=== PATIENT | female | born 1950 | race Caucasian/White ===

== ENCOUNTER → 2016-09-09 | Outpatient (CLI) | payer OTHER, BC | LOC: FIMAGING 11:58 | PROVIDERS: ATTEND Obstetrics & Gynecology | DX: Z13.21 Encounter for screening for nutritional disorder (principal) | CPT/HCPCS: G0202 ==

== ENCOUNTER → 2017-04-20 | Outpatient (CLI) | payer OTHER, BC | LOC: BMCIMAGING 14:26 | PROVIDERS: ATTEND Physician Assistant | DX: Z47.89 Encounter for other orthopedic aftercare (principal); M25.562 Pain in left knee; R50.9 Fever, unspecified; M25.462 Effusion, left knee; Z96.652 Presence of left artificial knee joint ==

== ENCOUNTER 2017-04-21 13:27 | Inpatient (IN) | payer OTHER, BC ==
[2017-04-21] MEDS ORDERED: LR 1,000 ML IV SCH ×2 (13:56→18:00)
[2017-04-21] MEDS ORDERED: LR 1,000 ML IV ONE (13:58)
[2017-04-21] MEDS ORDERED: LIDOCAINE 1% 2 ML INJ ID PRN (13:58)
[2017-04-21] MEDS ORDERED: ceFAZolin 1 GM/5 ML SYR ONE ×2 (15:16→15:19)
--- NOTE | 2017-04-21 15:40 | PDANEPAE ---
ANE Past Medical History - Cardiovascular History Hx Hypertension: No Hx Arrhythmias: No Hx Chest Pain: No Hx Coronary Artery / Peripheral Vascular Disease: No Hx CHF / Valvular Disease: No Hx Palpitations: No - Pulmonary History Hx COPD: No Hx Asthma/Reactive Airway Disease: No Hx Recent Upper Respiratory Infection: No Hx Oxygen in Use at Home: No Hx Sleep Apnea: No Sleep Apnea Screening Result - Last Documented: Negative - Neurologic History Hx Cerebrovascular Accident: No Hx Seizures: No Hx Dementia: No - Endocrine History Hx Diabetes: No - Renal History Hx Renal Disorders: No - Liver History Hx Hepatic Disorders: No - Neurological & Psychiatric Hx Hx Neurological and Psychiatric Disorders: No - Cancer History Hx Cancer: No - Congenital Disorder History Hx Congenital Disorders: No - GI History Hx Gastrointestinal Disorders: No - Surgical History Prior Surgeries: Left knee. T&A ANE Review of Systems Review of Systems: - Exercise capacity METS (RN): 6 METS ANE Patient History - Allergies Allergies/Adverse Reactions: No Allergies [NKDA] Allergy (Verified 07/21/10 12:50) - Home Medications Home Medications: Amphet Asp and D/Amphet [Adderall 20 mg (*)] 10 mg PO BID 04/21/17 [Last Taken 04/19/17] Estradiol/Norethindrone Acet [Combipatch 0.05-0.14 mg Ptch] 1 each TD Q7D PRN [Last Taken 04/14/17] Ibuprofen [Motrin (*)] 800 mg PO Q6HRS PRN 04/21/17 [Last Taken 04/21/17 07:00] Multivitamins [Multivitamin (*)] 1 each PO DAILY 04/21/17 [Last Taken Unknown] oxyCODONE/APAP 5/325 [Percocet 5/325 (*)] 2 - 3 tab PO Q4-6PRN PRN 04/21/17 [ Last Taken 04/21/17 11:00 3 tabs] - NPO status NPO Since - Liquids (Date): 04/21/17 NPO Since - Liquids (Time): 10:00 NPO Since - Solids (Date): 04/20/17 NPO Since - Solids (Time): 22:00 - Smoking Hx Smoking Status: Current some day smoker ANE Labs/Vital Signs - Vital Signs Blood Pressure: 116/64 Heart Rate: 66 Respiratory Rate: 16 O2 Sat (%): 93 Height: 160.02 cm Weight: 61.235 kg ANE Physical Exam - Airway Neck exam: FROM Mallampati Score: Class 2 Mouth exam: normal dental/mouth exam - Pulmonary Pulmonary: no respiratory distress - Cardiovascular Cardiovascular: regular rate and rhythym - ASA Status ASA Status: II ANE Anesthesia Plan Anesthesia Plan: GA w LMA
[2017-04-21] MEDS ORDERED: MIDAZOLAM 2 MG/2 ML VIAL ONE (15:41)
[2017-04-21] MEDS ORDERED: PROPOFOL 200 MG/20 ML VIAL ONE (15:41)
[2017-04-21] MEDS ORDERED: fentaNYL 100 MCG/2 ML INJ ONE ×5 (15:41→18:00)
[2017-04-21] MEDS ORDERED: LIDOCAINE 2% 100 MG/5 ML SYR ONE (15:42)
[2017-04-21] MEDS ORDERED: ONDANSETRON 4 MG/2 ML VIAL ONE (15:42)
[2017-04-21] MEDS ORDERED: VANCOMYCIN 1 GM VIAL ONE (16:21)
[2017-04-21] MEDS ORDERED: VANCOMYCIN HCL/NORMAL SALINE 250 ML IV ONE (16:30)
[2017-04-21] MEDS ORDERED: BUPIVACAINE 0.5% 30 ML SDV ONE (17:17)
[2017-04-21] MEDS ORDERED: ONDANSETRON 4 MG/2 ML VIAL IVP PRN ×2 (17:40→17:54)
[2017-04-21] MEDS ORDERED: ONDANSETRON DISINTEGRATING 4 MG TAB PO PRN (17:40)
[2017-04-21] MEDS ORDERED: traMADol 50 MG TAB PO PRN (17:40)
[2017-04-21] MEDS ORDERED: DIAZEPAM 5 MG TAB PO PRN (17:40)
[2017-04-21] MEDS ORDERED: diphenhydrAMINE 25 MG CAP PO PRN (17:40)
[2017-04-21] MEDS ORDERED: BISACODYL 10 MG SUPP PR PRN (17:40)
[2017-04-21] MEDS ORDERED: MAGNESIUM HYDROXIDE 30 ML UDCUP PO PRN (17:40)
[2017-04-21] MEDS ORDERED: DIPHENOXYLATE/ATROPINE LOMOTIL 1 TAB PO PRN (17:40)
[2017-04-21] MEDS ORDERED: PROMETHAZINE HCL 25 MG SUPPR PR PRN (17:40)
[2017-04-21] MEDS ORDERED: METOCLOPRAMIDE 10 MG/2 ML VIAL IVP PRN (17:40)
[2017-04-21] MEDS ORDERED: TEMAZEPAM 15 MG CAP PO PRN (17:40)
[2017-04-21] MEDS ORDERED: POLYETHYLENE GLYCOL 3350 17 GM PKT PO PRN (17:40)
[2017-04-21] MEDS ORDERED: LACTULOSE 20 GM/30 ML UDCUP PO PRN (17:40)
[2017-04-21] MEDS ORDERED: PROMETHAZINE HCL 25 MG/ML INJ IVP PRN (17:40)
[2017-04-21] MEDS ORDERED: ESTRADIOL TD PRN (17:44)
[2017-04-21] MEDS ORDERED: NORETHINDRONE ACET TD PRN (17:44)
[2017-04-21] MEDS ORDERED: OXYCODONE/APAP 5/325 TAB PO PRN (17:54)
[2017-04-21] MEDS ORDERED: HYDROCODONE/APAP 5/325 TAB PO PRN (17:54)
[2017-04-21] MEDS ORDERED: NALOXONE HCL 0.4 MG/ML INJ IVP PRN (17:54)
[2017-04-21] MEDS ORDERED: MEPERIDINE 25 MG/ML SYR IVP PRN (17:54)
[2017-04-21] MEDS ORDERED: ALBUTEROL 3 ML DEYVIAL IH PRN (17:54)
--- NOTE | 2017-04-21 17:57 | POSTANESTH ---
Post Anesthetic Evaluation Cardiovascular Status: Similar to Pre-Op Cond Respiratory Status: Similar to Pre-op Cond. Level of Consciousness/Mental Status: Alert and Oriented Pain Control: Adequate, Prn Tx Ordered Nausea/Vomiting Control: Adequate, Prn Tx Ordered Complications Possibly Related to Anesthesia: None Noted
[2017-04-21] MEDS: fentaNYL 100 MCG/2 ML INJ IVP PRN ×2 (18:03→18:08)
[2017-04-21] MEDS ORDERED: MEPERIDINE 25 MG/ML SYR ONE (18:19)
[2017-04-21] MEDS ORDERED: oxyCODONE IR 5 MG TAB ONE (19:00)
[2017-04-21] MEDS: oxyCODONE IR 5 MG TAB PO PRN ×2 (19:01→21:46)
[2017-04-21] MEDS: ACETAMINOPHEN 325 MG TAB PO SCH (20:02)
[2017-04-21] MEDS: FAMOTIDINE 20 MG TAB PO SCH (20:02)
[2017-04-21] MEDS: SENNOSIDES/DOCUSATE SODIUM TAB PO SCH (20:03)
[2017-04-21] MEDS: DIAZEPAM 5 MG TAB PO PRN ×2 (20:03→21:47)
[2017-04-21] MEDS: ADDERALL 10 MG TAB PO SCH (20:06)
[2017-04-21] MEDS: KETOROLAC 15 MG/1 ML SDV IVP PRN (21:47)
[2017-04-22] MEDS: oxyCODONE IR 5 MG TAB PO PRN ×3 (02:38→21:08)
[2017-04-22] MEDS: ACETAMINOPHEN 325 MG TAB PO SCH ×5 (02:39→17:31)
[2017-04-22] MEDS: KETOROLAC 15 MG/1 ML SDV IVP PRN ×2 (04:21→17:31)
[2017-04-22] MEDS: DIAZEPAM 5 MG TAB PO PRN ×3 (04:21→17:54)
--- NOTE | 2017-04-22 08:45 | SOAPPROG ---
SOAP Progress Note Assessment/Plan: Assessment: s/p hardware removal of failed partial knee septic knee Plan:ID consult iv abx picc line pain control dvt precautions d/c tomorow if stable 04/22/17 08:43 Subjective: pain slightly better limited mobility no cp or sob Objective: Vital Signs Temp Pulse Resp BP Pulse Ox 36.7 C 70 16 121/60 H 100 04/22/17 07:43 04/22/17 07:43 04/22/17 07:43 04/22/17 07:43 04/22/17 07:43 Microbiology 04/21/17 16:26 Gram Stain - Final Knee - Tissue 04/21/17 16:30 Gram Stain - Final Knee - Eswab 04/21/17 16:30 Mycobacterial Smear (CAROL) - Final Knee - Eswab Mycobacterial Culture - Final Laboratory Results 04/22/17 04:17 04/21/17 04/22/17 04/23/17 05:59 05:59 05:59 Intake Total 2000 Output Total 700 Balance 1300 dressing intact intact pf,df,ehl toes warm and pink neg homans bilaterally ICD10 Worksheet Patient Problems: Problems Problem Status Onset Septic arthritis of knee, left Acute - ICD10 Problem Qualifiers (1) Septic arthritis of knee, left
[2017-04-22] MEDS: SENNOSIDES/DOCUSATE SODIUM TAB PO SCH ×2 (09:02→21:07)
[2017-04-22] MEDS: ADDERALL 10 MG TAB PO SCH ×2 (09:02→21:34)
[2017-04-22] MEDS: FAMOTIDINE 20 MG TAB PO SCH ×2 (09:02→21:08)
[2017-04-22] MEDS: cefTRIAXone 2 GM in STERILE WATER INJ 20 ML IV SCH (09:03)
[2017-04-22] MEDS: ENOXAPARIN 30 MG/0.3 ML SYR SC SCH ×2 (09:03→21:08)
[2017-04-22] MEDS: MULTIVITAMINS 1 EACH TAB PO SCH (09:03)
[2017-04-22] MEDS ORDERED: ALTEPLASE 2 MG VIAL IVP PRN (09:58)
--- NOTE | 2017-04-22 15:14 | GCON ---
[f rep st] CONSULTATION INPATIENT INFECTIOUS DISEASE CONSULTATION DATE OF CONSULTATION: 04/22/2017 REFERRING PHYSICIAN: Neftaly Mccormick MD REASON FOR CONSULTATION: Left knee prosthetic joint infection. HISTORY OF PRESENT ILLNESS: The patient is a 67-year-old female who had a knee arthroplasty placed [facility] years ago. The patient has not had any problems with the arthroplasty, but developed a right -sided dental abscess approximately 2-3 weeks ago. The patient has not had a tooth extraction, altho ugh this was recommended by a band tacker. She was not placed on any antibiotics. She awoke approx imately 3 days ago, after a hike with her dog, and discovered that her left knee was swollen and pain ful. This led to aspiration in the orthopedist's office which revealed a purulent fluid. Cultures a re not revealing at this point. The patient was admitted and washed out yesterday in the operating r oom. Purulent fluid was again discovered. Multiple samples were sent. She was covered perioperativ les with cefazolin. We started her on ceftriaxone this morning. She is awake and alert, although in some significant discomfort. No other complaints. No fevers or chills. PAST MEDICAL HISTORY: 1. Insomnia. 2. Some chronic pain. PAST SURGICAL HISTORY: Total knee replacement. ANTIBIOTICS: Ceftriaxone. ALLERGIES: No known medical allergies. SOCIAL HISTORY: Patient is independent and active. She denies any significant tobacco, alcohol or d rug use. FAMILY HISTORY: Reviewed, but noncontributory. REVIEW OF SYSTEMS: Other than that detailed above in the History of Present Illness, a comprehensive 10-system review is negative. PHYSICAL EXAMINATION: VITAL SIGNS: Temperature maximum is 36.9, temperature current is 36.8, heart rate is 77, respiratory rate is 16, blood pressure is 136/69. GENERAL: The patient is a well-formed , well-nourished, older female, in no acute distress. She is not toxic in appearance. She is alert and oriented x3. She is in a pleasant demeanor. HEENT: Normocephalic for age. Atraumatic. No scl eral icterus. No oral lesion or drainage from the nares. Eyes: Lids and conjunctivae are within no rmal limits. Pupils are equal and round bilaterally. NECK: Supple. No meningismus. LUNGS: Clear . Good effort. HEART: Regular rate and rhythm. SKIN: Warm and dry to the touch, no rash or lesio n. MUSCULOSKELETAL: Left knee status post surgery. Otherwise, no joint enlargement or effusion not ed. LABORATORY DATA: Patient has a CBC dated 04/20/2017 that shows a white blood cell count of 18.2, hem oglobin of 14.2, hematocrit 42.9, and a platelet count of 370. Differential is left shifted with 78% segmented neutrophils. C-reactive protein on 04/20/2017 is elevated at 36. Joint fluid from 2017 shows 125,000 white cells and 4000 red cells, neutrophil-predominant 94%, rare intracellular zayra cium pyrophosphate crystals were found as well. Microbiologic Data: Patient has synovial fluid cultures dated 04/20/2017 which are no growth to date . The patient also has operative cultures 04/21/2017 which are pending. ASSESSMENT: Left arthroplasty septic arthritis. There were rare amounts of calcium pyrophosphate cr ystals found, so pseudogout is not completely ruled out. However, the intensity of the reaction, as well as the amount of white blood cells in the fluid, are certainly high for that process. At this p oint, we will continue to cover her with antibiotic, presuming that the recent dental problems and he r acute inflammation of her prosthesis in her left knee are linked. We will use ceftriaxone monother apy 2 g q.24 hours. We will watch the culture results. Will have a PICC line placed today. Anticip ate a 6-week course of antibiotics and the patient is planned for a reimplantation after the course o f antibiotics. PLAN: 1. PICC line placement. 2. Continue ceftriaxone IV daily. 3. Arrange either home IV antibiotics or infusion center antibiotics, depending on coverage. Ana Maria lopes with case management. /[id number]/MODL
--- NOTE | 2017-04-22 15:48 | ASMTCMCOM ---
CM Note CM Note Notes: Pt s/p knee hardware removal, is NWB. Early in the day it was believed pt would go home and only need would be home IV anti-biotics. Referral was sent to [facility] in [place], they can take pt and report pt is 100% covered. [facility] secured [facility] RN services w [facility]. Later in the day pt participated in therapy evals; OT/PT rec SNF at this time. Spoke w pt about this recommendation, she is provided SNF list and information on insurance/SNF options. Pt wants time to discuss SNF with friends/family and do some research. Pt would also still like to consider home still, reports she has a good support network but no one who can stay with her for any extended period time. Pt states private pay caregers are not a financial option. Pt is tearful, reporting she is in pain and is also overwhelmed with her current circumstances. This CM offered support and a referral to spiritual care, which pt declined. CM to follow up with pt tomorrow regarding d/c planning. D/c plan of care: SNF vs home w [facility] and [facility] Date Signed: 04/22/2017 03:48 PM Electronically Signed By:MARYANN Brooks
[2017-04-23] MEDS: ACETAMINOPHEN 325 MG TAB PO SCH ×4 (00:12→17:06)
[2017-04-23] MEDS: DIAZEPAM 5 MG TAB PO PRN ×3 (00:12→16:54)
[2017-04-23] MEDS: oxyCODONE IR 5 MG TAB PO PRN ×4 (00:13→09:15)
[2017-04-23] MEDS: KETOROLAC 15 MG/1 ML SDV IVP PRN ×2 (00:19→09:16)
[2017-04-23] MEDS: ENOXAPARIN 30 MG/0.3 ML SYR SC SCH ×2 (09:14→21:02)
[2017-04-23] MEDS: ADDERALL 10 MG TAB PO SCH ×2 (09:15→21:02)
[2017-04-23] MEDS: FAMOTIDINE 20 MG TAB PO SCH ×2 (09:15→21:01)
[2017-04-23] MEDS: SENNOSIDES/DOCUSATE SODIUM TAB PO SCH ×2 (09:15→21:47)
[2017-04-23] MEDS: MULTIVITAMINS 1 EACH TAB PO SCH (09:16)
--- NOTE | 2017-04-23 09:34 | SOAPPROG ---
SOAP Progress Note Assessment/Plan: Assessment: s/p hardware removal of failed partial knee septic knee Plan:ID consult iv abx picc line pain control dvt precautions d/c if cleared by pt and pain tolerable 04/22/17 08:43 04/23/17 09:33 Subjective: pain no cp or sob Objective: Vital Signs Temp Pulse Resp BP Pulse Ox 36.8 C 78 16 142/68 H 93 04/23/17 08:00 04/23/17 08:00 04/23/17 08:00 04/23/17 08:00 04/23/17 08:00 Microbiology 04/21/17 16:30 Gram Stain - Final Knee - Eswab 04/21/17 16:26 Gram Stain - Final Knee - Tissue 04/21/17 16:26 Mycobacterial Smear (CAROL) - Final Knee - Tissue Laboratory Results 04/23/17 06:15 04/22/17 04/23/17 04/24/17 05:59 05:59 05:59 Intake Total 1999 1650 Output Total 700 650 Balance 1300 1000 dressing intact intact pf,df,ehl toes warm and pink neg homans bilaterally mild swelling to left lower ext brace in place ICD10 Worksheet Patient Problems: Problems Problem Status Onset Septic arthritis of knee, left Acute - ICD10 Problem Qualifiers (1) Septic arthritis of knee, left
--- NOTE | 2017-04-23 09:39 | SOAPPROG ---
SOAP Progress Note Assessment/Plan: Assessment: s/p hardware removal of failed partial knee septic knee Plan:ID consult iv abx picc line pain control dvt precautions d/c if cleared by pt and pain tolerable 04/22/17 08:43 04/23/17 09:33 Objective: Vital Signs Temp Pulse Resp BP Pulse Ox 36.8 C 78 16 142/68 H 93 04/23/17 08:00 04/23/17 08:00 04/23/17 08:00 04/23/17 08:00 04/23/17 08:00 Microbiology 04/21/17 16:30 Gram Stain - Final Knee - Eswab 04/21/17 16:26 Gram Stain - Final Knee - Tissue 04/21/17 16:26 Mycobacterial Smear (CAROL) - Final Knee - Tissue Laboratory Results 04/23/17 06:15 04/22/17 04/23/17 04/24/17 05:59 05:59 05:59 Intake Total 1999 1650 Output Total 700 650 Balance 1300 1000 ICD10 Worksheet Patient Problems: Problems Problem Status Onset Septic arthritis of knee, left Acute - ICD10 Problem Qualifiers (1) Septic arthritis of knee, left
--- NOTE | 2017-04-23 09:40 | PDIAF ---
- Diagnosis Diagnosis: left septic tka Code Status: Full Code - Medication Management Discharge Medications: Medications to Continue on Transfer Amphet Asp and D/Amphet [Adderall 20 mg (*)] 10 mg PO BID 04/21/17 [Last Taken 04/19/17] Estradiol/Norethindrone Acet [Combipatch 0.05-0.14 mg Ptch] 1 each TD Q7D PRN [Last Taken 04/14/17] Ibuprofen [Motrin (*)] 800 mg PO Q6HRS PRN 04/21/17 [Last Taken 04/21/17 07:00] Multivitamins [Multivitamin (*)] 1 each PO DAILY 04/21/17 [Last Taken Unknown] Diazepam [Valium 5 MG (*)] 5 - 10 mg PO Q6HRS PRN #40 tab 04/23/17 [Last Taken Unknown] Enoxaparin [Lovenox] 30 mg SC BID #14 syr 04/23/17 [Last Taken Unknown] HYDROcodone/APAP 10/325 [[place] 10/325 (*)] 2 tab PO Q6HRS PRN #90 tab 04/23/17 [ Last Taken Unknown] cefTRIAXone [Rocephin] 2 gm IV DAILY vial 04/23/17 [Last Taken Unknown] oxyCODONE CR [Oxycontin] 10 mg PO BID #40 tab 04/23/17 [Last Taken Unknown] Discharge Medications: Refer to the Discharge Home Medication list for PRN reason. - Orders Services needed: Home Care, Registered Nurse, Physical Therapy Home Care Face to Face: I certify that this patient was under my care and that I had the required [id number] encounter meeting the encounter requirements on the discharge day. My findings support the fact that the patient is homebound as defined in Home Care Face to Face Continued: CMS Chapter 7 Medicare Benefits Manual 30.1.1 , The condition of the patient is such that there exists a normal inability to leave home and consequently, leaving home would require a considerable and taxing effort. Diet Recommendation: no restrictions on diet Diet Texture: Regular Texture Diet Activity/Weight Bearing Restrictions: non weight bearing. straight leg immobilizer at all times. no rom. daily dressing changes. picc line care. shower with bandage and brace in place. seek attn for increasing pain, cp, sob , leg swelling or pain. f[facility] - Follow Up Care Current Providers and Referrals: Emily Robison MD [Primary Care Provider] -
--- NOTE | 2017-04-23 10:10 | PDIAF ---
- Diagnosis Diagnosis: left septic tka Code Status: Full Code - Medication Management Discharge Medications: Medications to Continue on Transfer Amphet Asp and D/Amphet [Adderall 20 mg (*)] 10 mg PO BID 04/21/17 [Last Taken 04/19/17] Estradiol/Norethindrone Acet [Combipatch 0.05-0.14 mg Ptch] 1 each TD Q7D PRN [Last Taken 04/14/17] Ibuprofen [Motrin (*)] 800 mg PO Q6HRS PRN 04/21/17 [Last Taken 04/21/17 07:00] Multivitamins [Multivitamin (*)] 1 each PO DAILY 04/21/17 [Last Taken Unknown] Diazepam [Valium 5 MG (*)] 5 - 10 mg PO Q6HRS PRN #40 tab 04/23/17 [Last Taken Unknown] Enoxaparin [Lovenox] 30 mg SC BID #14 syr 04/23/17 [Last Taken Unknown] HYDROcodone/APAP 10/325 [[place] 10/325 (*)] 2 tab PO Q6HRS PRN #90 tab 04/23/17 [ Last Taken Unknown] cefTRIAXone [Rocephin] 2 gm IV DAILY vial 04/23/17 [Last Taken Unknown] oxyCODONE CR [Oxycontin] 10 mg PO BID #40 tab 04/23/17 [Last Taken Unknown] Passenger Car Inspector Antibiotics: Ceftriaxone 2 g IV daily Passenger Car Inspector Antibiotic Stop Date: 06/03/17 Discharge Medications: Refer to the Discharge Home Medication list for PRN reason. PICC Care - Routine: Yes - Orders Services needed: Home Care, Registered Nurse, Physical Therapy Home Care Face to Face: I certify that this patient was under my care and that I had the required [id number] encounter meeting the encounter requirements on the discharge day. My findings support the fact that the patient is homebound as defined in Home Care Face to Face Continued: CMS Chapter 7 Medicare Benefits Manual 30.1.1 , The condition of the patient is such that there exists a normal inability to leave home and consequently, leaving home would require a considerable and taxing effort. Diet Recommendation: no restrictions on diet Diet Texture: Regular Texture Diet Activity/Weight Bearing Restrictions: non weight bearing. straight leg immobilizer at all times. no rom. daily dressing changes. picc line care. shower with bandage and brace in place. seek attn for increasing pain, cp, sob , leg swelling or pain. f[facility] - Labs/Radiology CBC w/diff Date: 04/29/17 (Fax results to Dr. Edouard [phone]) CMP Date: 04/29/17 (Fax results to Dr. Edouard [phone]) - Follow Up Care Current Providers and Referrals: Emily Robison MD [Primary Care Provider] - Chuck Edouard MD [Medical Doctor] - (We will call patient for follow-up appointment in our clinic with Dr. Edouard.)
[2017-04-23] MEDS: cefTRIAXone 2 GM in STERILE WATER INJ 20 ML IV SCH (10:52)
[2017-04-23] MEDS: HYDROCODONE/APAP 10/325 TAB PO PRN ×2 (13:03→21:01)
[2017-04-23 13:53] LABS: PLATELET COUNT 320 10^3/uL (150-400)
--- NOTE | 2017-04-23 17:53 | ASMTCMCOM ---
CM Note CM Note Notes: Spoke with MDs & RN. Dc order received. Met with pt to discuss; pt interested in returning home with [facility] & [facility]. Alerted [facility]; dc paperwork faxed. Spoke with PT/OT; discussed concerns regarding pt returning home. Met with pt again; pt would now like to dc to SNF. Another list of SNF choices provided. Pt would like to go to [facility], if no beds are available at time of dc, pt would like to go to [facility] or [facility]. Referrals faxed to all 3 facilities. RN & MDs updated. Anticipate dc on Tuesday, 04/25. DC Plan-SNF Date Signed: 04/23/2017 05:52 PM Electronically Signed By:Heather Alvarez RN
[2017-04-24] MEDS: ACETAMINOPHEN 325 MG TAB PO SCH ×6 (01:23→21:09)
[2017-04-24] MEDS: HYDROCODONE/APAP 10/325 TAB PO PRN ×3 (04:56→21:05)
[2017-04-24] MEDS: cefTRIAXone 2 GM in STERILE WATER INJ 20 ML IV SCH (08:55)
[2017-04-24] MEDS: ENOXAPARIN 30 MG/0.3 ML SYR SC SCH ×2 (08:55→21:07)
[2017-04-24] MEDS: ADDERALL 10 MG TAB PO SCH ×2 (08:56→21:03)
[2017-04-24] MEDS: MULTIVITAMINS 1 EACH TAB PO SCH (08:57)
[2017-04-24] MEDS: FAMOTIDINE 20 MG TAB PO SCH ×2 (08:57→21:07)
[2017-04-24] MEDS: SENNOSIDES/DOCUSATE SODIUM TAB PO SCH ×2 (09:17→21:04)
--- NOTE | 2017-04-24 14:02 | PCMIDPN ---
Assessment/Plan: 1. 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 Edouard is notes, she will continue on ceftriaxone as is for 6 weeks. Patient will need a alf facility, and will likely go tomorrow. Baseline laboratories looked okay. Subjective: Unfortunately failed physical therapy trial yesterday, and needs to stay here another night to be able to go to a alf facility. Tolerating ceftriaxone. Objective: Ceftriaxone 2 g IV daily Afebrile Vital Signs Temp Pulse Resp BP Pulse Ox 36.6 C 72 16 109/89 H 90 L 04/24/17 07:23 04/24/17 07:23 04/24/17 07:23 04/24/17 07:23 04/24/17 07:23 Microbiology 04/21/17 16:26 Gram Stain - Final Knee - Tissue 04/21/17 16:30 Gram Stain - Final Knee - Eswab Laboratory Results 04/23/17 13:30 04/23/17 13:30 04/23/17 04/24/17 04/25/17 05:59 05:59 05:59 Intake Total 1650 1540 Output Total 650 Balance 1000 1540 Knee cultures continue show no growth to date. - Physical Exam General Appearance: alert, no apparent distress Extremities: other (Left knee is wrapped in a brace; I did not take this off.) Skin: other (PICC line right upper extremity looks fine.), No rash ICD10 Worksheet Patient Problems: Problems Problem Status Onset Septic arthritis of knee, left Acute
[2017-04-24] MEDS: DIAZEPAM 5 MG TAB PO PRN (21:33)
[2017-04-24] MEDS: KETOROLAC 15 MG/1 ML SDV IVP PRN (23:07)
[2017-04-25] MEDS: HYDROCODONE/APAP 10/325 TAB PO PRN ×2 (06:14→13:08)
--- NOTE | 2017-04-25 09:13 | SOAPPROG ---
SOAP Progress Note Assessment/Plan: Assessment: 4 days s/p L knee I&D with removal of total knee components for a septic knee. Doing well and pain controlled today. Plan: d/c to skilled facility daily dressing changes non-weightbearing, ROM to tolerance f[place] [facility] [place] 10 days 04/25/17 09:10 Subjective: Patient states she is doing well today and is pain controlled. Denies nausea, fever, chills, SOB, CP, calf pain, numbness or tingling. Objective: Vital Signs Temp Pulse Resp BP Pulse Ox 36.7 C 76 14 117/57 L 92 04/25/17 08:29 04/25/17 08:29 04/25/17 08:29 04/25/17 08:29 04/25/17 08:29 Microbiology 04/21/17 16:26 Gram Stain - Final Knee - Tissue 04/21/17 16:30 Gram Stain - Final Knee - Eswab Laboratory Results 04/23/17 13:30 04/23/17 13:30 04/24/17 04/25/17 04/26/17 05:59 05:59 05:59 Intake Total 1540 540 Balance 1540 540 - Time Spent With Patient Time Spent With Patient: 10 alina Physical Exam - Physical Exam General Appearance: WD/WN, alert, no apparent distress Peripheral Pulses: 1+: dorsalis-pedis (R), dorsalis-pedis (L) Skin: normal color, warm/dry, No rash Extremities: normal inspection, normal capillary refill, swelling, No normal range of motion, No non-tender, No pedal edema, No Yaz's sign Neuro/Psych: no motor/sensory deficits, alert, normal mood/affect, oriented x 3 ICD10 Worksheet Patient Problems: Problems Problem Status Onset Septic arthritis of knee, left Acute
[2017-04-25] MEDS: ENOXAPARIN 30 MG/0.3 ML SYR SC SCH (09:17)
[2017-04-25] MEDS: cefTRIAXone 2 GM in STERILE WATER INJ 20 ML IV SCH (09:17)
[2017-04-25] MEDS: SENNOSIDES/DOCUSATE SODIUM TAB PO SCH (09:18)
[2017-04-25] MEDS: MULTIVITAMINS 1 EACH TAB PO SCH (09:18)
[2017-04-25] MEDS: FAMOTIDINE 20 MG TAB PO SCH (09:18)
[2017-04-25] MEDS: ADDERALL 10 MG TAB PO SCH (09:18)
[2017-04-25 12:21] VITALS: BP 142/70; PULSE 80; RESP 16; TEMP 97.7; O2SAT 94
[2017-04-25] MEDS: ACETAMINOPHEN 325 MG TAB PO SCH (13:07)
--- NOTE | 2017-04-25 13:59 | PDIAF ---
- Diagnosis Diagnosis: left septic tka Code Status: Full Code - Medication Management Discharge Medications: Medications to Continue on Transfer Amphet Asp and D/Amphet [Adderall 20 mg (*)] 10 mg PO BID 04/21/17 [Last Taken 04/19/17] Estradiol/Norethindrone Acet [Combipatch 0.05-0.14 mg Ptch] 1 each TD Q7D PRN [Last Taken 04/14/17] Ibuprofen [Motrin (*)] 800 mg PO Q6HRS PRN 04/21/17 [Last Taken 04/21/17 07:00] Multivitamins [Multivitamin (*)] 1 each PO DAILY 04/21/17 [Last Taken Unknown] Diazepam [Valium 5 MG (*)] 5 - 10 mg PO Q6HRS PRN #40 tab 04/23/17 [Last Taken Unknown] Enoxaparin [Lovenox] 30 mg SC BID #14 syr 04/23/17 [Last Taken Unknown] HYDROcodone/APAP 10/325 [[place] 10/325 (*)] 2 tab PO Q6HRS PRN #90 tab 04/23/17 [ Last Taken Unknown] cefTRIAXone [Rocephin] 2 gm IV DAILY vial 04/23/17 [Last Taken Unknown] oxyCODONE CR [Oxycontin] 10 mg PO BID #40 tab 04/23/17 [Last Taken Unknown] Assembler Finger Buffs Antibiotics: Ceftriaxone 2 g IV daily As[employer] Antibiotic Stop Date: 06/03/17 Discharge Medications: Refer to the Discharge Home Medication list for PRN reason. PICC Care - Routine: Yes - Orders Services needed: Home Care, Registered Nurse, Physical Therapy Home Care Face to Face: I certify that this patient was under my care and that I had the required [id number] encounter meeting the encounter requirements on the discharge day. My findings support the fact that the patient is homebound as defined in Home Care Face to Face Continued: CMS Chapter 7 Medicare Benefits Manual 30.1.1 , The condition of the patient is such that there exists a normal inability to leave home and consequently, leaving home would require a considerable and taxing effort. Diet Recommendation: no restrictions on diet Diet Texture: Regular Texture Diet Activity/Weight Bearing Restrictions: non weight bearing. straight leg immobilizer at all times. no rom. daily dressing changes. picc line care. shower with bandage and brace in place. seek attn for increasing pain, cp, sob , leg swelling or pain. f[facility] - Labs/Radiology CBC w/diff Date: 04/29/17 (Fax results to Dr. Edouard [phone]) CMP Date: 04/29/17 (Fax results to Dr. Edouard [phone]) - Follow Up Care Current Providers and Referrals: Emily Robison MD [Primary Care Provider] - Chuck Edouard MD [Medical Doctor] - (We will call patient for follow-up appointment in our clinic with Dr. Edouard.)
--- NOTE | 2017-04-25 14:01 | PDIAF ---
- Diagnosis Diagnosis: left septic tka Code Status: Full Code - Medication Management Discharge Medications: Medications to Continue on Transfer Amphet Asp and D/Amphet [Adderall 20 mg (*)] 10 mg PO BID 04/21/17 [Last Taken 04/19/17] Estradiol/Norethindrone Acet [Combipatch 0.05-0.14 mg Ptch] 1 each TD Q7D PRN [Last Taken 04/14/17] Ibuprofen [Motrin (*)] 800 mg PO Q6HRS PRN 04/21/17 [Last Taken 04/21/17 07:00] Multivitamins [Multivitamin (*)] 1 each PO DAILY 04/21/17 [Last Taken Unknown] Diazepam [Valium 5 MG (*)] 5 - 10 mg PO Q6HRS PRN #40 tab 04/23/17 [Last Taken Unknown] Enoxaparin [Lovenox] 30 mg SC BID #14 syr 04/23/17 [Last Taken Unknown] HYDROcodone/APAP 10/325 [[place] 10/325 (*)] 2 tab PO Q6HRS PRN #90 tab 04/23/17 [ Last Taken Unknown] cefTRIAXone [Rocephin] 2 gm IV DAILY vial 04/23/17 [Last Taken Unknown] oxyCODONE CR [Oxycontin] 10 mg PO BID #40 tab 04/23/17 [Last Taken Unknown] Meal Room Hand Antibiotics: Ceftriaxone 2 g IV daily Meal Room Hand Antibiotic Stop Date: 06/03/17 Discharge Medications: Refer to the Discharge Home Medication list for PRN reason. PICC Care - Routine: Yes - Orders Services needed: Registered Nurse, Physical Therapy Diet Recommendation: no restrictions on diet Diet Texture: Regular Texture Diet Activity/Weight Bearing Restrictions: non weight bearing. straight leg immobilizer at all times. no rom. daily dressing changes. picc line care. shower with bandage and brace in place. seek attn for increasing pain, cp, sob , leg swelling or pain. f[facility] - Labs/Radiology CBC w/diff Date: 04/29/17 (Fax results to Dr. Edouard [phone]) CMP Date: 04/29/17 (Fax results to Dr. Edouard [phone]) - Follow Up Care Current Providers and Referrals: Emily Robison MD [Primary Care Provider] - Chuck Edouard MD [Medical Doctor] - (We will call patient for follow-up appointment in our clinic with Dr. Edouard.)
--- NOTE | 2017-04-25 15:29 | ASMTCMCOM ---
CM Note CM Note Notes: Pt medically stable for d/c and chooses [facility] today. [facility] schedules [facility] van transport for 1430. Orders sent in [employer]. Date Signed: 04/25/2017 03:28 PM Electronically Signed By:MARYANN Brooks
--- NOTE | 2017-04-25 15:30 | ASDISCHSUM ---
Discharge Information Plan Status:SNF Medically Cleared to Leave: Discharge Date:04/25/2017 03:25 PM CM D/C Disposition:Retirement Facility ADT D/C Disposition:Retirement Facility Projected Discharge Date:04/25/2017 11:00 AM Transportation at D/C:Wheelchair Van Discharge Delay Reason: Follow-Up Date:04/25/2017 11:00 AM Discharge Slot: Final Diagnosis: Placement Information Referral Type:Home Infusion Referral ID:[id number] Provider Name: Address 1: Phone Number: Address 2: Fax Number: City: Selection Factors: State: Referral Type:*Senior Living/SNF Referral ID:[id number] Provider Name:[facility] Address 1:[facility] Address 2: City:[place] Selection Factors: State:[place] Patient Contact Information Contact Name:JORGE L Relationship:Daughter Address: City: [facility] Phone: State/Zip Code: Email: Financial Information Financial Class: Primary Plan Desc:MEDICARE INPATIENT Primary Plan Number:[id number] Secondary Plan Desc:Karisma Kidz FEDERAL PLAN Secondary Plan Number:[id number] Assessment Information [facility] CM Progress Note CM Note CM Note Notes: Pt s/p knee hardware removal, is NWB. Early in the day it was believed pt would go home and only need would be home IV anti-biotics. Referral was sent to [facility] in [place], they can take pt and report pt is 100% covered. [facility] secured [facility] RN services w [facility]. Later in the day pt participated in therapy evals; OT/PT rec SNF at this time. Spoke w pt about this recommendation, she is provided SNF list and information on insurance/SNF options. Pt wants time to discuss SNF with friends/family and do some research. Pt would also still like to consider home still, reports she has a good support network but no one who can stay with her for any extended period time. Pt states private pay caregers are not a financial option. Pt is tearful, reporting she is in pain and is also overwhelmed with her current circumstances. This CM offered support and a referral to spiritual care, which pt declined. CM to follow up with pt tomorrow regarding d/c planning. D/c plan of care: SNF vs home w [facility] Date Signed: 04/22/2017 03:48 PM Electronically Signed By:MARYANN Brooks [facility] Progress Note CM Note CM Note Notes: Spoke with MDs & RN. Dc order received. Met with pt to discuss; pt interested in returning home with [facility] & [facility]. Alerted [facility]; dc paperwork faxed. Spoke with PT/OT; discussed concerns regarding pt returning home. Met with pt again; pt would now like to dc to SNF. Another list of SNF choices provided. Pt would like to go to [facility], if no beds are available at time of dc, pt would like to go to [facility] or [facility]. Referrals faxed to all 3 facilities. RN & MDs updated. Anticipate dc on Tuesday, 04/25. DC Plan-SNF Date Signed: 04/23/2017 05:52 PM Electronically Signed By:Heather Alvarez RN [facility] Progress Note CM Note CM Note Notes: Pt medically stable for d/c and chooses [facility] today. [facility] schedules van transport for 1430. Orders sent in [employer]. Date Signed: 04/25/2017 03:28 PM Electronically Signed By:MARYANN Brooks Intervention Information Intervention Type:*SORENSEN-Signed Date of Service:04/22/2017 10:50 AM Patient Type:Inpatient Staff Member:Luanne Wheeler Hours: Discipline: Severity: Comment: Intervention Type:*IM-Signed Date of Service:04/25/2017 10:07 AM Patient Type:Inpatient Staff Member:Luanne Wheeler Hours: Discipline: Severity: Comment:
--- NOTE | 2017-05-07 06:59 | GOP ---
[f rep st] OPERATIVE REPORT DATE OF OPERATION: 04/21/2017 SURGEON: Neftaly Mccormick MD MARKETING SPECIALIST: Paul Benites, COVER ASSEMBLER, [facility], who was medical necessity for the entirety of the case. PREOPERATIVE DIAGNOSIS: Failed infected left total knee arthroplasty. POSTOPERATIVE DIAGNOSIS: Failed infected left total knee arthroplasty. PROCEDURE PERFORMED: Hardware removal, total knee arthroplasty, placement of cement spacer. FINDINGS: SPECIMENS: To Pathology, as above. INDICATIONS: The patient is a 67-year-old woman who underwent a Deuce partial knee replacement by my partner, Dr. Duran approximately 8 years ago. She presented to the clinic with increasing pain, swel ling, and discomfort of 1 week duration. Aspiration of that knee revealed alannah purulence with great er than 100,000 white blood cells. She relayed approximately at that time that she had a dental absc ess that had not been treated with antibiotics. Clinical diagnosis was consistent with infection to her left total knee with gross purulence. I recommended surgical intervention for irrigation, debrid ement, hardware removal, and placement of a cement spacer. I have outlined the surgical procedure, r isks, benefits, and alternatives to her at length. She understood this and wished to proceed. DESCRIPTION OF PROCEDURE: The patient was identified in the preanesthesia area. The left knee clear ly demarcated as the operative site with indelible marker. She was given no preoperative antibiotics . In the OR, general endotracheal anesthesia was administered. Attention was turned to the left kne e and lower extremity, which was sterilely prepped and draped in the usual fashion. Appropriate time -out procedure was carried out. The limb was exsanguinated with gravity drainage and the tourniquet inflated to 275 mmHg. The previous incision was opened in entirety, carried sharply through the skin and subcutaneous tissu e to the medial parapatellar arthrotomy. The medial parapatellar arthrotomy was opened and all of th e Ethibond sutures were removed. There was approximately 30 cc of cloudy fluid, which was evacuated. This was sent for Gram stain, culture, and analysis. The underlying soft tissue was serially debri ded and this allowed full exposure of the knee. Subperiosteal elevation was carried out to the mid c oronal plane and the components were exposed. The tibial component was grossly loose. This was elev ated. The tissue surrounding the tibia was sent for Gram stain, culture, and analysis. Antibiotics were then given at this time. Using a quarter-inch osteotome, the femoral component was removed with minimal difficulty. All marginal cement was removed. The wound was serially debrided from the soft tissue to the bone and copiously irrigated with pulsatile lavage solution. Using a preformed femora l and tibial cement antibiotic spacer, these were then cemented into position with partially cured ce ment on both the femur and tibia while the knee was held in full extension. The wound was closed usi ng 0 Monocryl suture, 2-0 Monocryl suture, and balbir. A sterile dressing was applied followed by a Cryo/Cuff and straight leg immobilizer. She was awakened, taken to the recovery room in good stable condition. TOTAL TOURNIQUET TIME: 1 hour. COMPLICATIONS: None. DISPOSITION: To the recovery room, then the floor. She is nonweightbearing and currently no range o f motion. /[id number]/MODL
--- NOTE | 2017-05-07 07:54 | GDS ---
[f rep st] DISCHARGE SUMMARY SALES SUPPORT COORDINATOR: None. ADMIT DIAGNOSIS: Septic left total knee replacement. POSTOPERATIVE DIAGNOSIS: Septic left total knee replacement. PROCEDURE: Left total knee hardware removal and placement of cement spacer as well as IV antibiotics . HISTORY OF PRESENT ILLNESS: The patient is a 67-year-old woman who is approximately 8 years out from a Deuce partial knee replacement by Dr. Duran. She developed increasing swelling, pain and clinical signs of infection. Aspiration of her knee revealed greater than 100,000 white blood cells. She was therefore set up for hardware removal, cement spacer placement given the gross sepsis of her knee. Infectious Disease was involved. HOSPITAL COURSE: The patient was admitted to the hospital floor after uncomplicated removal of her p rosthetic component, placement of cement spacer. She continued for 3 days with IV antibiotics, Infec tious Disease management. She slowly progressed with physical therapy. At the time of transfer to a subacute nursing facility, she was stable. Dressing was clean, dry, and intact. She understood her weightbearing precautions. She is nonweightbearing and no range of motion currently. She has with ankle and calf range of motion to minimize her DVT risk. Daily dressing changes. No soaki ng or immersion. May shower without the bandage as long as she maintains her leg in straight alignme nt. DISCHARGE MEDICATIONS: See chart. DISCHARGE INSTRUCTIONS: Follow up in 2 weeks. Seek attention for increasing redness, swelling, drai nage, or discharge. /[id number]/MODL
== END 2017-04-25 15:25 | DRG 465 ==
LOC: FSGY 13:27 → F3N 17:40 → OBSVTOIN 04-22 10:19
PROVIDERS: ADMIT Orthopaedic Surgery; ATTEND Orthopaedic Surgery
PROC: 0SPD0JZ Removal of Synthetic Substitute from Left Knee Joint, Open Approach (ICD-10-PCS; principal; 2017-04-22)
PROC: 0SHD08Z Insertion of Spacer into Left Knee Joint, Open Approach (ICD-10-PCS; principal; 2017-04-22)
PROC: 02H633Z Insertion of Infusion Device into Right Atrium, Percutaneous Approach (ICD-10-PCS; 2017-04-22)
DX: T84.54XA Infection and inflammatory reaction due to internal left knee prosthesis, initial encounter (principal); Z96.652 Presence of left artificial knee joint; F17.210 Nicotine dependence, cigarettes, uncomplicated
CPT/HCPCS: 97116-GP; 97161-GP; 97165-GO; 97530-GO; 97530-GP; 97535-GO; C1713; C1751; G8978-GP-CK; G8979-GP-CI; G8980-GP-CJ; G8987-GO-CK; G8988-GO-CI; J0171; J0696; J1650; J1885; J2001; J2250; J2405; J2704; J3010; J3370

== ENCOUNTER 2017-07-12 10:30 | Inpatient (IN) | payer OTHER, BC ==
[2017-07-16] MEDS ORDERED: ROPIVACAINE 0.2% 80 MG, EPINEPHrine 0.2 MG, KETOROLAC TROMETHAMINE 30 MG, morphINE 10 M... IU ONE (09:00)
[2017-07-18] MEDS ORDERED: TRANEXAMIC ACID IV ONE ×2 (06:00→09:00)
[2017-07-18] MEDS ORDERED: NS IV ONE ×2 (06:00→09:00)
--- NOTE | 2017-07-18 06:58 | PDHPUP ---
History & Physical Update H&P update statement: This history and physical update is based on an assessment of the patient which was completed after admission or registration (within 24 hours), but prior to the surgery/procedure. H&P update: no change in patient's condition since H&P completed
--- NOTE | 2017-07-18 06:59 | PDIAF ---
- Diagnosis Diagnosis: R knee infection Code Status: Full Code - Medication Management Discharge Medications: Medications to Continue on Transfer Multivitamins [Multivitamin (*)] 1 each PO DAILY 04/21/17 [Last Taken Unknown] Ascorbic Acid [Vitamin C 500 mg (*)] 500 mg PO DAILY 06/29/17 [Last Taken Unknown] Aspirin [Aspirin 325 mg (*)] 325 mg PO DAILY 06/29/17 [Last Taken Unknown] Diazepam [Valium 10 MG (*)] 10 mg PO HS PRN 06/29/17 [Last Taken Unknown] HYDROcodone/APAP 10/325 [[place] 10/325 (*)] 1 tab PO QID 06/29/17 [Last Taken Unknown] Herbals/Supplements -Info Only 1 ea PO DAILY 06/29/17 [Last Taken Unknown] Ibuprofen [Motrin (*)] 800 mg PO BID 06/29/17 [Last Taken Unknown] Discharge Medications: Refer to the Discharge Home Medication list for PRN reason. - Orders Services needed: Physical Therapy Isolation Type: Droplet Isolation Diet Recommendation: no restrictions on diet Activity/Weight Bearing Restrictions: ROM as tolerated, WBAT, daily dressing changes, no soaking or immersion, may shower without bandage, follow up in 2 weeks, contact office for any concerns - Follow Up Care Current Providers and Referrals: Judit Bynum MD [Primary Care Provider] -
[2017-07-18] MEDS ORDERED: BUPI/epINEPH/KETOROLAC/morphINE IU ONE (09:00)
[2017-07-18] MEDS ORDERED: BUPIVACAINE/EPI 0.5% 30 ML SDV ONE (10:56)
[2017-07-18] MEDS ORDERED: CALCIUM CHLORIDE 1 GM/10 ML INJ ONE (10:57)
[2017-07-18] MEDS ORDERED: THROMBIN (BOVINE) 5,000 UNIT VIAL TP ONE (10:57)
[2017-07-18] MEDS ORDERED: ACETAMINOPHEN 325 MG TAB PO ONE (12:29)
[2017-07-18] MEDS ORDERED: ceFAZolin 2 GM/SWFI 2 GM/20 ML SYR IVP ONE (12:29)
[2017-07-18] MEDS ORDERED: FAMOTIDINE 20 MG TAB PO ONE (12:29)
[2017-07-18] MEDS ORDERED: ceFAZolin 1 GM/5 ML SYR ONE (12:41)
[2017-07-18] MEDS ORDERED: LR 1,000 ML IV ONE (13:08)
[2017-07-18] MEDS ORDERED: MIDAZOLAM 2 MG/2 ML VIAL IVP ONE (15:08)
--- NOTE | 2017-07-18 15:08 | PDANEPAE ---
<Zack Bhagat - Last Filed: 07/18/17 15:07> ANE History of Present Illness S/p TKA with infection ANE Past Medical History - Cardiovascular History Hx Hypertension: No Hx Arrhythmias: No Hx Chest Pain: No Hx Coronary Artery / Peripheral Vascular Disease: No Hx CHF / Valvular Disease: No Hx Palpitations: No - Pulmonary History Hx COPD: No Hx Asthma/Reactive Airway Disease: No Hx Recent Upper Respiratory Infection: No Hx Oxygen in Use at Home: No Hx Sleep Apnea: No Sleep Apnea Screening Result - Last Documented: Negative Pulmonary History Comment: flu 05-13-17 w/ no cough,congestion - Neurologic History Hx Cerebrovascular Accident: No Hx Seizures: No Hx Dementia: No - Endocrine History Hx Diabetes: No - Renal History Hx Renal Disorders: No - Liver History Hx Hepatic Disorders: No - Neurological & Psychiatric Hx Hx Neurological and Psychiatric Disorders: No - Cancer History Hx Cancer: No - Congenital Disorder History Hx Congenital Disorders: No - GI History Hx Gastrointestinal Disorders: No - Other Health History Other Health History: L partial knee infection - Chronic Pain History Chronic Pain: Yes (L knee) - Surgical History Prior Surgeries: partial Left knee ~2010. L knee debridement/I and D, removal of implant, spacer implant w/antibx 04-21-17;. T&A child ANE Review of Systems Review of Systems: - Exercise capacity METS (RN): 4 METS ANE Patient History - Allergies Allergies/Adverse Reactions: No Allergies [NKDA] Allergy (Verified 06/29/17 12:13) No Allergies Allergy (Unknown, Uncoded 05/16/17 12:21) - Home Medications Home medications: home medication list seen and reviewed Home Medications: Multivitamins [Multivitamin (*)] 1 each PO DAILY 04/21/17 [Last Taken Unknown] Ascorbic Acid [Vitamin C 500 mg (*)] 500 mg PO DAILY 06/29/17 [Last Taken Unknown] Aspirin [Aspirin 325 mg (*)] 325 mg PO DAILY 06/29/17 [Last Taken Unknown] Diazepam [Valium 10 MG (*)] 10 mg PO HS PRN 06/29/17 [Last Taken Unknown] HYDROcodone/APAP 10/325 [[place] 10/325 (*)] 1 tab PO QID 06/29/17 [Last Taken Unknown] Herbals/Supplements -Info Only 1 ea PO DAILY 06/29/17 [Last Taken Unknown] Ibuprofen [Motrin (*)] 800 mg PO BID 06/29/17 [Last Taken Unknown] - NPO status NPO Since - Liquids (Date): 07/17/17 NPO Since - Liquids (Time): 19:00 NPO Since - Solids (Date): 07/17/17 NPO Since - Solids (Time): 19:00 - Smoking Hx Smoking Status: Current some day smoker ANE Labs/Vital Signs - Vital Signs Blood Pressure: 128/79 Heart Rate: 73 Respiratory Rate: 18 O2 Sat (%): 95 Height: 160.02 cm Weight: 61.235 kg <Paul Gaytan - Last Filed: 07/18/17 16:54> ANE Past Medical History - Cardiovascular History Hx Hypertension: No Hx Arrhythmias: No ANE Review of Systems Review of systems is: negative Review of Systems: - Exercise capacity Exercise capacity: >=4 METS ANE Physical Exam - Airway Neck exam: FROM Mallampati Score: Class 2 - Pulmonary Pulmonary: clear to auscultation - Cardiovascular Cardiovascular: regular rate and rhythym - ASA Status ASA Status: II ANE Anesthesia Plan Anesthesia Plan: spinal Regional Anesthesia: adductor canal FNB
[2017-07-18] MEDS ORDERED: PROPOFOL/EMULSION 500 MG/50 ML BOTTLE IV ONE (16:02)
[2017-07-18] MEDS ORDERED: LIDOCAINE 2% 5 ML SDV ONE (16:06)
[2017-07-18] MEDS ORDERED: VANCOMYCIN 1 GM VIAL ONE ×2 (16:52→17:50)
[2017-07-18] MEDS ORDERED: DEXAMETHASONE 4 MG/ML VIAL IVP PRN (16:54)
[2017-07-18] MEDS ORDERED: ONDANSETRON 4 MG/2 ML VIAL IVP PRN ×2 (16:54→18:08)
[2017-07-18] MEDS ORDERED: oxyCODONE IR 5 MG TAB PO PRN (16:54)
[2017-07-18] MEDS ORDERED: NALOXONE HCL 0.4 MG/ML INJ IVP PRN (16:54)
[2017-07-18] MEDS ORDERED: HYDROmorphONE/DILAUDID 2 MG/ML INJ IVP PRN (16:54)
[2017-07-18] MEDS ORDERED: fentaNYL 100 MCG/2 ML INJ IVP PRN (16:54)
[2017-07-18] MEDS ORDERED: ALBUTEROL 3 ML DEYVIAL IH PRN (16:54)
[2017-07-18] MEDS ORDERED: TOBRAMYCIN SULFATE MISC ONE (17:00)
[2017-07-18] MEDS ORDERED: PROPOFOL 200 MG/20 ML VIAL ONE (17:33)
[2017-07-18] MEDS ORDERED: PROMETHAZINE HCL 25 MG SUPPR PR PRN (18:08)
[2017-07-18] MEDS ORDERED: diphenhydrAMINE 25 MG CAP PO PRN (18:08)
[2017-07-18] MEDS ORDERED: MAGNESIUM HYDROXIDE 30 ML UDCUP PO PRN (18:08)
[2017-07-18] MEDS ORDERED: TEMAZEPAM 15 MG CAP PO PRN (18:08)
[2017-07-18] MEDS ORDERED: METOCLOPRAMIDE 10 MG/2 ML VIAL IVP PRN (18:08)
[2017-07-18] MEDS ORDERED: BISACODYL 10 MG SUPP PR PRN (18:08)
[2017-07-18] MEDS ORDERED: PROMETHAZINE HCL 25 MG/ML INJ IVP PRN (18:08)
[2017-07-18] MEDS ORDERED: ONDANSETRON DISINTEGRATING 4 MG TAB PO PRN (18:08)
[2017-07-18] MEDS ORDERED: DIAZEPAM 5 MG TAB PO PRN (18:08)
[2017-07-18] MEDS ORDERED: POLYETHYLENE GLYCOL 3350 17 GM PKT PO PRN (18:08)
[2017-07-18] MEDS ORDERED: DIPHENOXYLATE/ATROPINE LOMOTIL 1 TAB PO PRN (18:08)
[2017-07-18] MEDS ORDERED: LACTULOSE 20 GM/30 ML UDCUP PO PRN (18:08)
[2017-07-18] MEDS ORDERED: ROPIVACAINE HCL 150 MG/30 ML INJ ONE (18:12)
[2017-07-18] MEDS ORDERED: LR 1,000 ML IV SCH (18:30)
[2017-07-18] MEDS ORDERED: fentaNYL 100 MCG/2 ML INJ ONE (19:16)
[2017-07-18] MEDS: HYDROCODONE/APAP 10/325 TAB PO PRN (21:55)
[2017-07-18] MEDS: SENNOSIDES/DOCUSATE SODIUM TAB PO SCH (21:55)
[2017-07-18] MEDS ORDERED: ceFAZolin 2 GM/DEXTROSE 100 ML IV SCH (22:00)
[2017-07-18] MEDS: FAMOTIDINE 20 MG TAB PO SCH (22:30)
[2017-07-18] MEDS: ASPIRIN 325 MG TAB PO SCH (22:30)
[2017-07-19] MEDS: oxyCODONE IR 5 MG TAB PO PRN ×3 (00:10→13:24)
[2017-07-19] MEDS: ceFAZolin 2 GM/SWFI 2 GM/20 ML SYR IVP SCH ×2 (00:10→08:06)
[2017-07-19] MEDS: ACETAMINOPHEN 325 MG TAB PO SCH ×4 (00:17→15:47)
[2017-07-19] MEDS: HYDROCODONE/APAP 10/325 TAB PO PRN ×4 (03:36→23:32)
--- NOTE | 2017-07-19 07:17 | SOAPPROG ---
SOAP Progress Note Assessment/Plan: Assessment: s/p revision of cement spacer left tka infection Plan:ID consult for picc line and six weeks iv abx d/c home today after picc line f/u at two weeks tdwb no rom, brace dvt precautions 07/19/17 07:16 Subjective: min pain currently no cp or sbo Objective: Vital Signs Temp Pulse Resp BP Pulse Ox 36.8 C 67 18 122/58 H 93 07/19/17 03:48 07/19/17 03:48 07/19/17 03:48 07/19/17 03:48 07/19/17 03:48 Laboratory Results 07/19/17 04:50 07/18/17 07/19/17 07/20/17 05:59 05:59 05:59 Intake Total 1700 500 Output Total 1495 100 Balance 205 400 dressing intact intact pdf,ehl toes warm and pink neg homans quentin xrays stable alignment ICD10 Worksheet Patient Problems: Problems Problem Status Onset Septic arthritis of knee, left Acute
--- NOTE | 2017-07-19 07:20 | PDIAF ---
- Diagnosis Diagnosis: R knee infection Code Status: Full Code - Medication Management Discharge Medications: Medications to Continue on Transfer Multivitamins [Multivitamin (*)] 1 each PO DAILY 04/21/17 [Last Taken Unknown] Ascorbic Acid [Vitamin C 500 mg (*)] 500 mg PO DAILY 06/29/17 [Last Taken Unknown] Aspirin [Aspirin 325 mg (*)] 325 mg PO DAILY 06/29/17 [Last Taken Unknown] Diazepam [Valium 10 MG (*)] 10 mg PO HS PRN 06/29/17 [Last Taken Unknown] HYDROcodone/APAP 10/325 [[place] 10/325 (*)] 1 tab PO QID 06/29/17 [Last Taken Unknown] Herbals/Supplements -Info Only 1 ea PO DAILY 06/29/17 [Last Taken Unknown] Ibuprofen [Motrin (*)] 800 mg PO BID 06/29/17 [Last Taken Unknown] Aspirin [Aspirin 325 mg (*)] 325 mg PO DAILY tab 07/19/17 [Last Taken Unknown] HYDROcodone/APAP 10/325 [[place] 10/325 (*)] 1 - 2 tab PO Q6HRS PRN tab 07/19/17 [Last Taken Unknown] Discharge Medications: Refer to the Discharge Home Medication list for PRN reason. - Orders Services needed: Physical Therapy Isolation Type: Droplet Isolation Diet Recommendation: no restrictions on diet Diet Texture: Regular Texture Diet Activity/Weight Bearing Restrictions: ROM as tolerated, WBAT, daily dressing changes, no soaking or immersion, may shower without bandage, follow up in 2 weeks, contact office for any concerns - Follow Up Care Current Providers and Referrals: Neftaly Mccormick MD [Medical Doctor] - Judit Bynum MD [Primary Care Provider] -
--- NOTE | 2017-07-19 07:37 | PDIAF ---
- Diagnosis Diagnosis: R knee infection Code Status: Full Code - Medication Management Discharge Medications: Medications to Continue on Transfer Multivitamins [Multivitamin (*)] 1 each PO DAILY 04/21/17 [Last Taken Unknown] Ascorbic Acid [Vitamin C 500 mg (*)] 500 mg PO DAILY 06/29/17 [Last Taken Unknown] Aspirin [Aspirin 325 mg (*)] 325 mg PO DAILY 06/29/17 [Last Taken Unknown] Diazepam [Valium 10 MG (*)] 10 mg PO HS PRN 06/29/17 [Last Taken Unknown] HYDROcodone/APAP 10/325 [[place] 10/325 (*)] 1 tab PO QID 06/29/17 [Last Taken Unknown] Herbals/Supplements -Info Only 1 ea PO DAILY 06/29/17 [Last Taken Unknown] Ibuprofen [Motrin (*)] 800 mg PO BID 06/29/17 [Last Taken Unknown] Aspirin [Aspirin 325 mg (*)] 325 mg PO DAILY tab 07/19/17 [Last Taken Unknown] HYDROcodone/APAP 10/325 [[place] 10/325 (*)] 1 - 2 tab PO Q6HRS PRN tab 07/19/17 [Last Taken Unknown] Discharge Medications: Refer to the Discharge Home Medication list for PRN reason. - Orders Services needed: Registered Nurse Isolation Type: Droplet Isolation Diet Recommendation: no restrictions on diet Diet Texture: Regular Texture Diet Activity/Weight Bearing Restrictions: ROM as tolerated, WBAT, daily dressing changes, no soaking or immersion, may shower without bandage, follow up in 2 weeks, contact office for any concerns - Follow Up Care Current Providers and Referrals: Neftaly Mccormick MD [Medical Doctor] - Judit Bynum MD [Primary Care Provider] -
[2017-07-19] MEDS: FAMOTIDINE 20 MG TAB PO SCH ×2 (07:43→20:48)
[2017-07-19] MEDS: SENNOSIDES/DOCUSATE SODIUM TAB PO SCH ×2 (07:43→21:33)
[2017-07-19] MEDS: ASPIRIN 325 MG TAB PO SCH (07:43)
[2017-07-19] MEDS ORDERED: ALTEPLASE 2 MG VIAL IVP PRN (09:47)
--- NOTE | 2017-07-19 10:04 | PDIAF ---
- Diagnosis Diagnosis: Possible L knee infection Code Status: Full Code - Medication Management Discharge Medications: Medications to Continue on Transfer Multivitamins [Multivitamin (*)] 1 each PO DAILY 04/21/17 [Last Taken Unknown] Ascorbic Acid [Vitamin C 500 mg (*)] 500 mg PO DAILY 06/29/17 [Last Taken Unknown] Aspirin [Aspirin 325 mg (*)] 325 mg PO DAILY 06/29/17 [Last Taken Unknown] Diazepam [Valium 10 MG (*)] 10 mg PO HS PRN 06/29/17 [Last Taken Unknown] HYDROcodone/APAP 10/325 [[place] 10/325 (*)] 1 tab PO QID 06/29/17 [Last Taken Unknown] Herbals/Supplements -Info Only 1 ea PO DAILY 06/29/17 [Last Taken Unknown] Ibuprofen [Motrin (*)] 800 mg PO BID 06/29/17 [Last Taken Unknown] Aspirin [Aspirin 325 mg (*)] 325 mg PO DAILY tab 07/19/17 [Last Taken Unknown] HYDROcodone/APAP 10/325 [[place] 10/325 (*)] 1 - 2 tab PO Q6HRS PRN tab 07/19/17 [Last Taken Unknown] Materials Handling Coordinator Antibiotics: Ceftriaxone 2g IV daily Long-Term Antibiotic Stop Date: 08/29/17 Discharge Medications: Refer to the Discharge Home Medication list for PRN reason. PICC Care - Routine: Yes - Orders Services needed: Registered Nurse Isolation Type: Droplet Isolation Diet Recommendation: no restrictions on diet Diet Texture: Regular Texture Diet Activity/Weight Bearing Restrictions: ROM as tolerated, WBAT, daily dressing changes, no soaking or immersion, may shower without bandage, follow up in 2 weeks, contact office for any concerns Additional Instructions: TOTAL JOINT ARTHROPLASTY DISCHARGE INSTRUCTIONS tdwb only left lower ext no rom brace when oob 1. Your surgeon follows the [facility] protocol for reducing your risk of DVT (blood clots) following surgery. Medication will be ordered to prevent blood clots. A sudden increase in calf pain and/or swelling could indicate a blood clot in your leg. If this occurs, please call your surgeon or his/her certified medical technician assistant. An ultrasound of the leg may be necessary to diagnose a blood clot. If you have conditions that make you a higher risk for blood clots, your surgeon may use more aggressive ways to prevent them. Notify your surgeon if you think you are a high risk for blood clots. 2. Wear your white surgical stockings (COLE hose) for 2 weeks. This decreases your swelling and may help prevent blood clots. It is ok to remove COLE hose at night time to give your legs a break. 3. Swelling and bruising in the surgical leg is common. If you feel that it is excessive, please notify your surgeon. 4. Elevate your surgical leg with the ankle above the hip several times every day. Please keep the leg straight when you elevate by putting pillows under your foot. Do not put pillows under your knee. This will make being able to fully straighten more difficult. This is uncomfortable, but try to do it as much as possible. 5. For total knee replacements use compressive wrap on your knee for 3-5 days after surgery, then you can discontinue it. 6. Use a walker or crutches for 1-2 weeks. Progress your weight-bearing as tolerated. You may start to use a cane when you feel stable and safe. 7. You will receive physical therapy instructions in the hospital. Continue those exercises at home. There are additional exercises in the total joint booklet you were given before surgery. Outpatient physical therapy will begin 7- 10 days after surgery. Please schedule this in advance. 8. Use ice on your knee at least 3-5 times every day for 30 minutes. This helps reduce pain and swelling. Also use it at night before falling asleep. 9. Leave your surgical dressing in place for 2 weeks. Your dressing is water resistant, but not waterproof. Cover it with Saran Wrap or Kolbo-v-Prlb before showering. You may shower as soon as you feel safe entering a shower. If you notice bleeding from your incision 2 or 3 days after surgery, please notify your surgeon. 10. Due to narcotics, decreased activity and altered diet, most patients experience constipation after surgery. Use [id number] stool softeners while you are on narcotics. 11. You may drive a car when you are comfortable bearing weight, have good muscular control of your leg and are off narcotics. This usually occurs 2-4 weeks after surgery, depending on which leg was operated on. 12. If there are questions not addressed here, please refer the [facility] book given for more information. If you still have questions, please contact your surgeon s office. 13. If you have a life-threatening emergency, please call 911 and go to the emergency room immediately. For non-life threatening emergencies, please call your physicians office for advice before going to the emergency room. - Labs/Radiology CBC w/diff Date: 07/25/17 (q mondays) CMP Date: 07/25/17 (qmond) CRP Date: 07/25/17 (q mondays) Call or Fax Lab and Imaging Results to: FAx to Dr. Chuck Edouard- [phone] - Follow Up Care Current Providers and Referrals: Neftaly Mccormick MD [Medical Doctor] - Judit Bynum MD [Primary Care Provider] - Chuck Edouard MD [Medical Doctor] - follow up in 10 days (follow up with Dr. chuck Edouard (infectious diseases). )
--- NOTE | 2017-07-19 10:35 | GCON ---
[f rep st] CONSULTATION INFECTIOUS DISEASE CONSULTATION DATE OF CONSULTATION: 07/19/2017 REFERRING PHYSICIAN: Neftaly Mccormick MD REASON FOR CONSULTATION: Possible recurrent left prosthetic knee infection. CHIEF COMPLAINT: Swelling of the left knee. 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 Last dose of antibiotics was on June 03, 2017. She was followed by Dr. Danyelle Edouard. After being off antibiotics for about 2 to 3 weeks, joint aspiration was done and after 10 to 14 days, growth of Staph warneri grew out of 1 colony. This was considered to be a contaminant and she had a repeat joint aspiration on 07/01, which yielded no growth. She has been off antibiotics ever since. It was deemed that she was to come in yesterday for an elective replacement of her total knee arthroplasty. At the time of surgery, specimens underneath the spacer had determined there was a degree of inflammation and a new spacer was placed and no hardware was placed. Cultures were taken. Cultures are still preliminary. There is no organism seen on the Gram stain and cultures are pending. No basic labs were done on admission. She does, however, tell me that over the last several days because of this impending surgery, she has been moving around a lot more, she has not been using her crutches and that her left knee started to swell up more than usual just prior to her surgery yesterday. She cannot recall if it was hot or warm to touch. She was having more pain in general. She denies any fevers or shaking chills. Infectious Disease is now consulted for further evaluation and opinion. REVIEW OF SYSTEMS: GENERAL: No fevers or shaking chills. HEAD: No headaches. EYES: No change in vision. ENT: No sore throat, difficulty swallowing, ear pain or ear drainage. CARDIOVASCULAR: No chest pain or rapid heartbeat. RESPIRATORY: No shortness of breath, cough, or sputum production. ABDOMEN: No nausea, vomiting, abdominal pain, diarrhea. GENITOURINARY: No dysuria or hematuria. BACK : She has some mild back pain now after her epidural, but prior to that, no back pain. No flank pain. EXTREMITIES: No other joints are swollen or causing her pain. SKIN: No other rashes or open wounds. Rest of a 10-point review of systems essentially negative above. PAST MEDICAL HISTORY: Significant for insomnia, left prosthetic knee infection back in 04/2017, status post IV antibiotics, ceftriaxone x6 weeks with last dose on 06/03. History of fibroids. PAST SURGICAL HISTORY: Significant for tonsillectomy and previous left total knee arthroplasty about [address] Duran, and then recent removal of hardware in 04/2017. ALLERGIES: No known drug allergies. SOCIAL HISTORY: She smokes about a pack over 1 week time period. She does not drink alcohol. No illicit drug usage. She lives alone. She has a dog, a cat and a fish, and all are healthy. She has not left [place] recently. She has not had any exposure to fresh water, ocean water or hot tubs. States that her animals do not lick her knees. She has not consumed any raw milk or unpasteurized cheeses. FAMILY HISTORY: She states everyone in her family is healthy. MEDICATIONS: As per [facility]. PHYSICAL EXAMINATION: VITAL SIGNS: Temperature current 36.7, pulse is 64, blood pressure 127/57, heart rate is 64, respiratory rate is 18, saturation 94% on room air. GENERAL: She is resting comfortably in bed. No acute respiratory distress. Awake, alert, and oriented x3. HEENT. Head is normocephalic, atraumatic. Pupils are equal, round, reactive to light. No conjunctival injection or petechiae noted. Oropharynx is clear. No posterior erythema or thrush. She has several missing teeth on the right lower gumline. CARDIOVASCULAR: S1, S2. Regular rate and rhythm. She has a 3/6 systolic murmur appreciated. RESPIRATORY: Clear to auscultate bilaterally. No rhonchi or rales appreciated. ABDOMEN: Positive bowel sounds in all 4 quadrants. Soft, nontender, nondistended. No obvious organomegaly appreciated. EXTREMITIES: Limited exam. She has compression stockings on the right lower extremity. She has her knee dressed and immobilized on the left knee. LABORATORY: Only a hemoglobin and hematocrit are present which are 13.3 and 39.5, respectively. Labs reviewed from several months ago, where in May she had a normal white blood cell count with a normal diff, normal kidney function and LFTs. A C-reactive protein is less than 5. Joint fluids over the last several months were reviewed along with her microbiology data. The only positive study was a Staph warneri, 1 colony, back on 06/15 and growth was after about 14 days. ASSESSMENT: Residual inflammation involving the left knee, query ongoing left knee infection versus other. PLAN: At this point in time, she has never had any positive cultures. She has been off antibiotics for around 6 weeks. She has had some acute recent increase in swelling and pain involving her left knee due to trying to do a lot more walking and exerting herself and not using her crutches. It is uncertain whether or not the degree of inflammation that was seen is related to that. 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 For now cultures are young and we will continue to follow them. In the meantime, will empirically put her with a PICC line and place on ceftriaxone, tentatively 6 weeks, although may reassess at 2 weeks. We will see if we can send her micro specimens to possibly [facility] to see if there could be anything else that may grow out, although I suspect this will be a lower yield as I would expect typical organisms to grow out, especially since she has not been on antibiotics since around 6 weeks and no known unusual exposures. She currently has no hardware in place. She has a spacer in place. Plan of care was explained to the patient in detail. Care coordinated with her nurse and with Dr. Mccormick. Care was also coordinated with Dr. Edouard who is her primary infectious disease physician. Greater than 80 minutes was spent in the care and review her medical records, and reviewed her microbiologic data, and coordinating care with all her different providers. Thank you very much for allowing this opportunity to care for your patient in consultation. /[id number]/MODL MTDD
[2017-07-19 11:24] LABS: PLATELET COUNT 260 10^3/uL (150-400)
[2017-07-19] MEDS ORDERED: cefTRIAXone 2 GM in STERILE WATER INJ 20 ML IV ONE (12:00)
[2017-07-19] MEDS ORDERED: LIDOCAINE 1% 300 MG/30 ML SDV ONE (13:12)
--- NOTE | 2017-07-19 16:24 | ASMTCMCOM ---
CM Note CM Note Notes: This morning pt had a d/c order and indicated she was going to go home, [facility] accepted pt for home infusion and [facility] accepted pt for HHC RN. In the afternoon pt indicated she wanted a d/c to [facility] due to pain control, she lives alone and lacks support system. Referral sent to [facility] and they are able to accept pt. updated. D/c plan of care: [facility] Tuesday. Date Signed: 07/19/2017 04:23 PM Electronically Signed By:MARYANN Brooks
--- NOTE | 2017-07-19 16:27 | PDMN ---
Medical Necessity Medical necessity: change to IP; IP surgery per [facility] cpt 59140 for spacer replacement
--- NOTE | 2017-07-19 23:01 | PCMIDPN ---
Assessment/Plan: Assessment/Plan: Consult seen and dictated. Objective: Vital Signs Temp Pulse Resp BP Pulse Ox 36.8 C 78 18 107/58 L 94 07/19/17 22:49 07/19/17 22:49 07/19/17 22:49 07/19/17 22:49 07/19/17 22:49 Microbiology 07/18/17 17:52 Mycobacterial Smear (CAROL) - Final Knee - Tissue 07/18/17 17:52 Gram Stain - Final Knee - Tissue Laboratory Results 07/19/17 11:11 07/19/17 11:11 07/18/17 07/19/17 07/20/17 05:59 05:59 05:59 Intake Total 1700 1000 Output Total 1495 950 Balance 205 50 ICD10 Worksheet Patient Problems: Problems Problem Status Onset Septic arthritis of knee, left Acute
[2017-07-20] MEDS: ACETAMINOPHEN 325 MG TAB PO SCH ×4 (00:36→17:27)
[2017-07-20] MEDS: HYDROCODONE/APAP 10/325 TAB PO PRN ×3 (05:38→21:13)
--- NOTE | 2017-07-20 06:47 | SOAPPROG ---
SOAP Progress Note Assessment/Plan: Assessment: s/p revision of cement spacer left tka infection Plan:got picc yesterday waiting for snf DAY 2 OF [facility] AT [facility] no functional status changes from preop dvt precautions 07/19/17 07:16 07/20/17 06:46 Subjective: wishes to go to snf mod pain Objective: Vital Signs Temp Pulse Resp BP Pulse Ox 36.8 C 78 18 107/58 L 94 07/19/17 22:49 07/19/17 22:49 07/19/17 22:49 07/19/17 22:49 07/19/17 22:49 Microbiology 07/18/17 17:52 Mycobacterial Smear (CAROL) - Final Knee - Tissue 07/18/17 17:52 Gram Stain - Final Knee - Tissue Laboratory Results 07/20/17 04:30 07/19/17 11:11 07/19/17 07/20/17 07/21/17 05:59 05:59 05:59 Intake Total 1700 1300 Output Total 1495 950 Balance 205 350 dressing intact intact pf,df,ehl neg homans quentin ICD10 Worksheet Patient Problems: Problems Problem Status Onset Septic arthritis of knee, left Acute
[2017-07-20] MEDS: FAMOTIDINE 20 MG TAB PO SCH ×2 (09:01→21:11)
[2017-07-20] MEDS: ASPIRIN 325 MG TAB PO SCH (09:01)
[2017-07-20] MEDS: SENNOSIDES/DOCUSATE SODIUM TAB PO SCH ×2 (09:04→21:19)
[2017-07-20] MEDS: cefTRIAXone 2 GM in STERILE WATER INJ 20 ML IV SCH (09:29)
[2017-07-20] MEDS: HYDROmorphONE/DILAUDID 2 MG TAB PO PRN (13:52)
--- NOTE | 2017-07-20 17:02 | SOAPPROG ---
SOAP Progress Note Assessment/Plan: Assessment: S/P Knee revision 3 days ago. Unfortunately, replacement not completed secondary to concerns about infection. Anticipate TKR in 2 weeks. Needs pain management prior to. Discussed need to limit narcotic utilization and try other modalities to control pain including meditation and relaxation. Will begin low dose Nortriptyline. Plan is to go to nursing facility in two days. Plan: 07/20/17 16:58 D/C oxycodone and oxycontin and diladid. Start Morphine 15 SR tid. Continue hydorocodone 10/325 1-2 q 6 hours. Add Nortriptyline 25mg qhs. Objective: Vital Signs Temp Pulse Resp BP Pulse Ox 36.8 C 72 16 117/60 92 07/20/17 07:52 07/20/17 07:52 07/20/17 07:52 07/20/17 07:52 07/20/17 07:52 Microbiology 07/18/17 17:52 Gram Stain - Final Knee - Tissue 07/18/17 17:52 Mycobacterial Smear (CAROL) - Final Knee - Tissue Laboratory Results 07/20/17 04:30 07/19/17 11:11 07/19/17 07/20/17 07/21/17 05:59 05:59 05:59 Intake Total 1700 1300 Output Total 1495 950 Balance 205 350 Physical Exam - Physical Exam General Appearance: WD/WN, alert, anxiety Extremities: swelling ICD10 Worksheet Patient Problems: Problems Problem Status Onset Septic arthritis of knee, left Acute
[2017-07-20] MEDS: morphINE SR 15 MG TAB PO SCH ×2 (17:25→21:11)
[2017-07-20] MEDS ORDERED: morphINE SR 15 MG TAB PO SCH ×2 (21:00→22:00)
[2017-07-20] MEDS: NORTRIPTYLINE HCL 25 MG CAP PO SCH (21:11)
[2017-07-21] MEDS: HYDROmorphONE/DILAUDID 2 MG TAB PO PRN (01:40)
[2017-07-21] MEDS: ACETAMINOPHEN 325 MG TAB PO SCH ×5 (01:41→23:33)
[2017-07-21] MEDS: HYDROCODONE/APAP 10/325 TAB PO PRN ×2 (05:19→14:34)
--- NOTE | 2017-07-21 06:18 | SOAPPROG ---
SOAP Progress Note Assessment/Plan: Assessment: s/p revision of cement spacer left tka infection Plan: appreciate pain management consult patient subjectively stable with pain eval with production control planner if patient needs prescriptions for discharge tomorrow? waiting for snf s/p [facility] midn[facility] in [facility] awaiting fourth midnight to go to snf tomorrow continue iv abx per ID no functional status changes from preop dvt precautions 07/19/17 07:16 07/20/17 06:46 07/21/17 06:15 07/21/17 06:18 Subjective: pain control improved no cp or sob edy po Objective: Vital Signs Temp Pulse Resp BP Pulse Ox 36.8 C 72 16 120/56 L 95 07/20/17 23:04 07/20/17 23:04 07/20/17 23:04 07/20/17 23:04 07/20/17 23:04 Microbiology 07/18/17 17:52 Gram Stain - Final Knee - Tissue Laboratory Results 07/20/17 04:30 07/19/17 11:11 07/20/17 07/21/17 07/22/17 05:59 05:59 05:59 Intake Total 1300 800 Output Total 950 Balance 350 800 dressing clean, dry and intact intact pf,df,ehl quentin neg homans quentin ICD10 Worksheet Patient Problems: Problems Problem Status Onset Septic arthritis of knee, left Acute
[2017-07-21] MEDS: SENNOSIDES/DOCUSATE SODIUM TAB PO SCH ×2 (09:01→21:48)
[2017-07-21] MEDS: cefTRIAXone 2 GM in STERILE WATER INJ 20 ML IV SCH (09:05)
[2017-07-21] MEDS: ASPIRIN 325 MG TAB PO SCH (09:06)
[2017-07-21] MEDS: FAMOTIDINE 20 MG TAB PO SCH ×2 (09:06→21:41)
[2017-07-21] MEDS: morphINE SR 15 MG TAB PO SCH ×3 (11:06→21:41)
--- NOTE | 2017-07-21 11:31 | ASMTCMCOM ---
CM Note CM Note Notes: Pt had pain management consult. Updates sent to [facility] in [employer]. Pt has a planned total knee in two weeks. Anticipate SNF d/c tomorrow. Date Signed: 07/21/2017 11:30 AM Electronically Signed By:MARYANN Brooks
--- NOTE | 2017-07-21 13:59 | PCMIDPN ---
Assessment/Plan: Assessment: Possible recurrent left knee prosthetic joint infection. Patient is doing very well postoperatively. Retains a 2nd spacer in the left knee area. She is currently being managed on empiric ceftriaxone. Inflammation seen in pathology from the synovium sent during revision surgery. Unclear if this represents infectious etiology or non infectious etiology. To determine this we will send a multiplex PCR panel to [facility] for bacterial pathogens. If these are negative we will truncate the empiric ceftriaxone and observe. Discussed case with Dr. Neftaly Mccormick. Plan: 1. Continue IV ceftriaxone empirically for now. 2. Await PCR panel testing from [facility]. 07/21/17 13:57 Subjective: Patient is resting in her hospital bed. She denies any new complaints. States that her left lower extremity is reduced in swelling from immediately after surgery. She has no particular complaint of pain. No fevers or chills. Objective: Ceftriaxone # 2 Vital Signs Temp Pulse Resp BP Pulse Ox 36.9 C 72 16 97/59 L 91 L 07/21/17 07:49 07/21/17 08:58 07/21/17 07:49 07/21/17 08:58 07/21/17 07:49 Microbiology 07/18/17 17:52 Gram Stain - Final Knee - Tissue Laboratory Results 07/20/17 04:30 07/19/17 11:11 07/20/17 07/21/17 07/22/17 05:59 05:59 05:59 Intake Total 1300 800 Output Total 950 Balance 350 800 - Physical Exam General Appearance: WD/WN, alert, no apparent distress, non-toxic Respiratory: lungs clear, normal breath sounds, No respiratory distress Cardiac/Chest: regular rate, rhythm, No tachycardia Extremities: No non-tender, No normal inspection, No inflammation, No swelling, No erythema Skin: normal color, warm/dry, No rash Neuro/Psych: alert, normal mood/affect, oriented x 3 ICD10 Worksheet Patient Problems: Problems Problem Status Onset Septic arthritis of knee, left Acute
[2017-07-21] MEDS: NORTRIPTYLINE HCL 25 MG CAP PO SCH (21:39)
[2017-07-22] MEDS: HYDROCODONE/APAP 10/325 TAB PO PRN ×3 (00:15→11:19)
[2017-07-22] MEDS: ACETAMINOPHEN 325 MG TAB PO SCH ×2 (03:32→11:21)
[2017-07-22 08:28] VITALS: BP 105/56
--- NOTE | 2017-07-22 08:34 | PDIAF ---
- Diagnosis Diagnosis: Possible L knee infection Code Status: Full Code - Medication Management Discharge Medications: Medications to Continue on Transfer Multivitamins [Multivitamin (*)] 1 each PO DAILY 04/21/17 [Last Taken Unknown] Ascorbic Acid [Vitamin C 500 mg (*)] 500 mg PO DAILY 06/29/17 [Last Taken Unknown] Aspirin [Aspirin 325 mg (*)] 325 mg PO DAILY 06/29/17 [Last Taken Unknown] Diazepam [Valium 10 MG (*)] 10 mg PO HS PRN 06/29/17 [Last Taken Unknown] HYDROcodone/APAP 10/325 [Weippe 10/325 (*)] 1 tab PO QID 06/29/17 [Last Taken Unknown] Herbals/Supplements -Info Only 1 ea PO DAILY 06/29/17 [Last Taken Unknown] Ibuprofen [Motrin (*)] 800 mg PO BID 06/29/17 [Last Taken Unknown] Aspirin [Aspirin 325 mg (*)] 325 mg PO DAILY tab 07/19/17 [Last Taken Unknown] HYDROcodone/APAP 10/325 [Weippe 10/325 (*)] 1 - 2 tab PO Q6HRS PRN tab 07/19/17 [Last Taken Unknown] Diazepam [Valium 5 MG (*)] 5 mg PO Q6HRS PRN tab 07/22/17 [Last Taken Unknown] Nortriptyline HCl [Pamelor 25 mg (*)] 25 mg PO HS cap 07/22/17 [Last Taken Unknown] Ondansetron Odt [Zofran Odt 4 mg (*)] 4 mg PO Q4HRS PRN tab 07/22/17 [Last Taken Unknown] cefTRIAXone [Rocephin] 2 gm IV DAILY vial 07/22/17 [Last Taken Unknown] morphINE SR [Ms Contin/Oramorph 15 mg (*)] 15 mg PO TID tab 07/22/17 [Last Taken Unknown] Dry Finisher Antibiotics: Ceftriaxone 2g IV daily Dry Finisher Antibiotic Stop Date: 08/29/17 Discharge Medications: Refer to the Discharge Home Medication list for PRN reason. PICC Care - Routine: Yes - Orders Services needed: Registered Nurse, Physical Therapy Isolation Type: None Diet Recommendation: no restrictions on diet Diet Texture: Regular Texture Diet Activity/Weight Bearing Restrictions: ROM as tolerated, WBAT, daily dressing changes, no soaking or immersion, may shower without bandage, follow up in 2 weeks, contact office for any concerns Additional Instructions: TOTAL JOINT ARTHROPLASTY DISCHARGE INSTRUCTIONS tdwb only left lower ext no rom brace when oob 1. Your surgeon follows the [facility] protocol for reducing your risk of DVT (blood clots) following surgery. Medication will be ordered to prevent blood clots. A sudden increase in calf pain and/or swelling could indicate a blood clot in your leg. If this occurs, please call your surgeon or his/her orthopedic physician assistant. An ultrasound of the leg may be necessary to diagnose a blood clot. If you have conditions that make you a higher risk for blood clots, your surgeon may use more aggressive ways to prevent them. Notify your surgeon if you think you are a high risk for blood clots. 2. Wear your white surgical stockings (COLE hose) for 2 weeks. This decreases your swelling and may help prevent blood clots. It is ok to remove COLE hose at night time to give your legs a break. 3. Swelling and bruising in the surgical leg is common. If you feel that it is excessive, please notify your surgeon. 4. Elevate your surgical leg with the ankle above the hip several times every day. Please keep the leg straight when you elevate by putting pillows under your foot. Do not put pillows under your knee. This will make being able to fully straighten more difficult. This is uncomfortable, but try to do it as much as possible. 5. For total knee replacements use compressive wrap on your knee for 3-5 days after surgery, then you can discontinue it. 6. Use a walker or crutches for 1-2 weeks. Progress your weight-bearing as tolerated. You may start to use a cane when you feel stable and safe. 7. You will receive physical therapy instructions in the hospital. Continue those exercises at home. There are additional exercises in the total joint booklet you were given before surgery. Outpatient physical therapy will begin 7- 10 days after surgery. Please schedule this in advance. 8. Use ice on your knee at least 3-5 times every day for 30 minutes. This helps reduce pain and swelling. Also use it at night before falling asleep. 9. Leave your surgical dressing in place for 2 weeks. Your dressing is water resistant, but not waterproof. Cover it with Saran Wrap or [id number] before showering. You may shower as soon as you feel safe entering a shower. If you notice bleeding from your incision 2 or 3 days after surgery, please notify your surgeon. 10. Due to narcotics, decreased activity and altered diet, most patients experience constipation after surgery. Use [id number] stool softeners while you are on narcotics. 11. You may drive a car when you are comfortable bearing weight, have good muscular control of your leg and are off narcotics. This usually occurs 2-4 weeks after surgery, depending on which leg was operated on. 12. If there are questions not addressed here, please refer the [facility] book given for more information. If you still have questions, please contact your surgeon s office. 13. If you have a life-threatening emergency, please call 911 and go to the emergency room immediately. For non-life threatening emergencies, please call your physicians office for advice before going to the emergency room. - Labs/Radiology CBC w/diff Date: 07/25/17 (q mondays) CMP Date: 07/25/17 (ond) CRP Date: 07/25/17 (q mondays) Call or Fax Lab and Imaging Results to: FAx to Dr. Chuck Edouard- [phone] - Follow Up Care Current Providers and Referrals: Neftaly Mccormick MD [Medical Doctor] - Judit Bynum MD [Primary Care Provider] - Chuck Edouard MD [Medical Doctor] - follow up in 10 days (follow up with Dr. chuck Edouard (infectious diseases). )
[2017-07-22] MEDS: ASPIRIN 325 MG TAB PO SCH (09:14)
[2017-07-22] MEDS: morphINE SR 15 MG TAB PO SCH (09:15)
[2017-07-22] MEDS: FAMOTIDINE 20 MG TAB PO SCH (09:15)
[2017-07-22] MEDS: SENNOSIDES/DOCUSATE SODIUM TAB PO SCH (09:16)
[2017-07-22] MEDS: cefTRIAXone 2 GM in STERILE WATER INJ 20 ML IV SCH (09:21)
--- NOTE | 2017-07-22 11:47 | ASMTCMCOM ---
CM Note CM Note Notes: Dc order received. Spoke with RN. Met with pt; pt agreeable to discharging to [facility]. Pt requesting to have her daughter transport her to [facility]. Discussed private transport with Tomasa, at [facility]; Tomasa agreeable. Paperwork faxed; confirmed received. Pt reports she was current with [facility] & [facility] prior to this admission & would like to continue to use them once she discharges from [facility]. LVM alerting LUCIANO Velazquez at [facility]. Also alerted Radha at [facility] & Nickie at [facility]. RN updated. No other needs at this time. Date Signed: 07/22/2017 11:46 AM Electronically Signed By:Barb Browne RN
--- NOTE | 2017-07-22 11:50 | ASDISCHSUM ---
Discharge Information Plan Status:SNF Medically Cleared to Leave:07/22/2017 Discharge Date:07/22/2017 11:31 AM D/C Disposition:Custodial Facility ADT D/C Disposition:Custodial Facility Projected Discharge Date:07/22/2017 12:00 PM Transportation at D/C:Family Discharge Delay Reason: Follow-Up Date:07/22/2017 12:00 PM Discharge Slot: Final Diagnosis: Placement Information Referral Type:Home Infusion Referral ID:[id number] Provider Name: Address 1: Phone Number: Address 2: Fax Number: City: Selection Factors: State: Referral Type:*Skilled Nursing/SNF Referral ID:[id number] Provider Name:[facility] Address 1:[facility] Address 2: City:[place] Selection Factors: State:[place] Patient Contact Information Contact Name:JORGE L Relationship:Daughter Address: City: Alternate Phone: State/Zip Code: Email: Financial Information Financial Class:Medicare Primary Plan Desc:MEDICARE INPATIENT Primary Plan Number:[id number] Secondary Plan Desc:[employer] FEDERAL PLAN Secondary Plan Number:[id number] Assessment Information LACE LACE Length of stay for Answers: 4-6 days current admission Acuity / Level of Answers: Yes Care: Did the patient have an inpatient admission? Comorbidities - select Answers: Opioid dependence all that apply / Chronic pain # of Emergency department Answers: 0 visits in the last 6 months Score: 11 Date Signed: 07/22/2017 11:17 AM Electronically Signed By:Barb Browne RN [facility] CM Progress Note CM Note CM Note Notes: This morning pt had a d/c order and indicated she was going to go home, [facility] accepted pt for home infusion and [facility] accepted pt for C RN. In the afternoon pt indicated she wanted a d/c to [facility] due to pain control, she lives alone and lacks support system. Referral sent to [facility] and they are able to accept pt. MD updated. D/c plan of care: [facility] Tuesday. Date Signed: 07/19/2017 04:23 PM Electronically Signed By:MARYANN Brooks [facility] CM Progress Note CM Note CM Note Notes: Pt had pain management consult. Updates sent to [facility] in [employer]. Pt has a planned total knee in two weeks. Anticipate SNF d/c tomorrow. Date Signed: 07/21/2017 11:30 AM Electronically Signed By:MARYANN Brooks [facility] CM Progress Note CM Note CM Note Notes: Dc order received. Spoke with RN. Met with pt; pt agreeable to discharging to [facility]. Pt requesting to have her daughter transport her to [facility]. Discussed private transport with Tomasa, at [facility]; Tomasa agreeable. Paperwork faxed; confirmed received. Pt reports she was current with [facility] prior to this admission & would like to continue to use them once she discharges from [facility]. LVM alerting LUCIANO Velazquez at [facility]. Also alerted Radha at [facility] & Nickie at [facility]. RN updated. No other needs at this time. Date Signed: 07/22/2017 11:46 AM Electronically Signed By:Barb Browne RN Intervention Information Intervention Type:*Incorrect Registration Date of Service:07/19/2017 09:28 AM Patient Type:Inpatient Staff Member:YANIV Keith, Ivy Hours: Discipline: Severity: Comment: Intervention Type:*IM-Signed Date of Service:07/22/2017 10:01 AM Patient Type:Inpatient Staff Member:Luanne Wheeler Hours: Discipline: Severity: Comment:
--- NOTE | 2017-07-23 06:29 | GDS ---
[f rep st] DISCHARGE SUMMARY ADMIT DIAGNOSIS: Septic left total knee arthroplasty. POSTOPERATIVE DIAGNOSIS: Septic left total knee arthroplasty. PROCEDURE: I and D to bone, cement spacer exchange, and IV antibiotics with PICC line placement. 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 She underwent cement spacer placement and removal of her p rosthetic component 8 weeks ago. She returned for planned reimplantation of her total knee. HOSPITAL COURSE: The patient was admitted to the hospital floor after exchanging the cement spacer f or a new antibiotic-impregnated spacer. No reimplantation was possible given the presence of acute i nflammation. She had a protracted course as she required greater than 3 midnights for transfer to a subacute nursing facility based on government guidelines and issues with pain management. Her pain s pecialist doctor was consulted for in-hospital management. At the time of transfer, she remains stab le. Serial hematocrits have remained stable. The dressing is clean, dry, and intact. She has been cleared by Physical Therapy. DISCHARGE MEDICATIONS: See chart. DISCHARGE ACTIVITY: She is no range of motion, brace at all times save for when lying in bed. May s hower without the dressing, no soaking or immersion. She is touchdown weightbearing. FOLLOWUP: 2 weeks. /[id number]/MODL
--- NOTE | 2017-07-23 06:39 | GOP ---
[f rep st] OPERATIVE REPORT DATE OF OPERATION: 07/18/2017 SURGEON: Neftaly Mccormick MD ABORIGINAL CEREMONIAL CELEBRANT: Paul Benites, INSTRUMENT INSPECTOR, [facility], who was a medical necessity for the entirety of the case. Also present, VELASQUEZ Stratton. 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 PROCEDURE PERFORMED: Irrigation and debridement to bone, and exchange of a cement spacer left total knee replacement. FINDINGS: INDICATIONS: The patient is a 67-year-old woman who is 8 weeks status post hardware removal for a pa rtial knee replacement that became infected. She has undergone 6 weeks of antibiotics. Her repeat l abs and workup have revealed the infection to be cleared and we planned to return for placement of a total knee component. She understood the risks, benefits, alternatives, and wished to proceed. Writ ten consent was signed and placed in patient's chart. DESCRIPTION OF PROCEDURE: The patient was identified in the preanesthesia area. The left knee clear ly demarcated as the operative site with indelible marker. She was given no preoperative antibiotics prior to the operative suite. In the OR, spinal anesthetic was placed followed by sedation. She wa s positioned in the supine position. All bony prominences were well padded. Appropriate time-out pr ocedure was carried out. The limb was then sterilely prepped and draped in usual fashion. Tournique t inflated to 275 mmHg. The previous incision was opened in entirety. The medial parapatellar arthrotomy was then opened. S oft tissue dissection was carried out to the mid coronal plane and the knee was brought to a flexed p osition. The previous cement spacer over the femur and tibia were removed. The bone was grossly int act. There was no gross purulence. Tissue samples were sent for frozen specimens. The skin, subcut aneous tissue, and bone ends were then debrided in a sequential fashion. A proximal tibial cut was t hen made using an external guide for a primary knee replacement. A distal cut was made across the fe mur in similar fashion, referencing the femoral shaft for alignment. At this time the pathologist ca lled back with the results of the frozen specimen which revealed greater than 10 neutrophils per high -powered field and evidence of acute inflammation. Given the patient's history of infection, the gillian mplantation was abandoned at this point. Several antibiotic beads were then made and placed about th e knee joint. Additional tobramycin and vancomycin-infused cement was then made and the preformed an tibiotic femoral and tibial spacers were then held in position while the cement fully cured. A 10-Fr ench drain was placed at the dorsal lateral portal site. The wound was closed using 0 PDS, 2-0 Monoc ryl, and the skin was stapled. The margins were instilled with a joint cocktail in the skin and subc utaneous tissue only. A sterile dressing was applied, followed by knee brace. Patient was awakened, taken to recovery room in good stable condition. TOTAL TOURNIQUET TIME: 1 hour. COMPLICATIONS: Failure to reimplant. DISPOSITION: To the recovery room, then the floor. She is touchdown weightbearing and will undergo an additional 6 weeks of antibiotics per Infectious Disease workup. /[id number]/MODL
== END 2017-07-22 11:31 | DRG 494 ==
LOC: INTOOBSV 07-18 11:12 → F3N 07-18 11:12 → OBSVTOIN 07-18 11:12 → F3N 07-18 19:40
PROVIDERS: ADMIT Orthopaedic Surgery; ATTEND Orthopaedic Surgery
DX: T84.54XA Infection and inflammatory reaction due to internal left knee prosthesis, initial encounter (principal)
CPT/HCPCS: 97161-GP; 97166-GO; 97530-GO; 97535-GO; C1713; C1751; G8978-GP-CI; G8979-GP-CI; G8980-GP-CI; G8987-GO-CJ; G8988-GO-CI; G8989-GO-CI; J0171; J0690; J0696; J1885; J2250; J2270; J2704; J2795; J3010; J3260; J3370

== ENCOUNTER 2017-08-15 08:44 | Inpatient (IN) | payer OTHER, BC ==
--- NOTE | 2017-08-15 06:24 | PDIAF ---
- Diagnosis Diagnosis: failed left total knee arthroplasty Code Status: Full Code - Medication Management Discharge Medications: Medications to Continue on Transfer Multivitamins [Multivitamin (*)] 1 each PO DAILY 04/21/17 [Last Taken Unknown] Diazepam [Valium 10 MG (*)] 10 mg PO HS PRN 06/29/17 [Last Taken Unknown] HYDROcodone/APAP 10/325 [[place] 10/325 (*)] 1 tab PO Q4-6PRN PRN 06/29/17 [Last Taken Unknown] Herbals/Supplements -Info Only 1 ea PO DAILY 06/29/17 [Last Taken Unknown] Ibuprofen [Motrin (*)] 800 mg PO BID 06/29/17 [Last Taken Unknown] Aspirin [Aspirin 325 mg (*)] 325 mg PO DAILY tab 07/19/17 [Last Taken Unknown] oxyCODONE HCL [Oxycontin] 20 mg PO BID 08/09/17 [Last Taken Unknown] Discharge Medications: Refer to the Discharge Home Medication list for PRN reason. - Orders Services needed: Physical Therapy Isolation Type: Droplet Isolation Diet Recommendation: no restrictions on diet Diet Texture: Regular Texture Diet Activity/Weight Bearing Restrictions: wbat. rom as edy. keep dressing. if dressing becomes saturated, change daily. may shower without bandage. f/u at two weeks. seek attn for increasing pain, chest pain, shortness of breath, drainage or other focal complaint - Follow Up Care Current Providers and Referrals: Judit Bynum MD [Primary Care Provider] -
[~2017-08-15 08:44] MED LIST: CALCIUM CHLORIDE 1 GM/10 ML INJ ONE; NS IV ONE; ROPIVACAINE 0.2% 80 MG, EPINEPHrine 0.2 MG, KETOROLAC TROMETHAMINE 30 MG, morphINE 10 M... IU ONE; THROMBIN (BOVINE) 5,000 UNIT VIAL TP ONE; TRANEXAMIC ACID IV ONE; ceFAZolin 1 GM/5 ML SYR ONE
[2017-08-15] MEDS ORDERED: ACETAMINOPHEN 325 MG TAB PO ONE (08:49)
[2017-08-15] MEDS ORDERED: FAMOTIDINE 20 MG TAB PO ONE (08:49)
[2017-08-15] MEDS ORDERED: ceFAZolin 2 GM/SWFI 2 GM/20 ML SYR IVP ONE (08:49)
[2017-08-15] MEDS ORDERED: LR 1,000 ML IV ONE (08:51)
[2017-08-15] MEDS ORDERED: PROPOFOL 200 MG/20 ML VIAL ONE ×3 (09:04→13:32)
[2017-08-15] MEDS ORDERED: MIDAZOLAM 2 MG/2 ML VIAL IVP ONE (09:04)
[2017-08-15] MEDS ORDERED: fentaNYL 100 MCG/2 ML INJ ONE ×3 (09:04→15:18)
--- NOTE | 2017-08-15 09:06 | PDANEPAE ---
ANE Past Medical History - Cardiovascular History Hx Hypertension: No Hx Arrhythmias: No Hx Chest Pain: No Hx Coronary Artery / Peripheral Vascular Disease: No Hx CHF / Valvular Disease: No Hx Palpitations: No - Pulmonary History Hx COPD: No Hx Asthma/Reactive Airway Disease: No Hx Recent Upper Respiratory Infection: No Hx Oxygen in Use at Home: No Hx Sleep Apnea: No Sleep Apnea Screening Result - Last Documented: Negative Pulmonary History Comment: flu 05-13-17 w/ no cough,congestion - Neurologic History Hx Cerebrovascular Accident: No Hx Seizures: No Hx Dementia: No - Endocrine History Hx Diabetes: No - Renal History Hx Renal Disorders: No - Liver History Hx Hepatic Disorders: No - Neurological & Psychiatric Hx Hx Neurological and Psychiatric Disorders: No - Cancer History Hx Cancer: No - Congenital Disorder History Hx Congenital Disorders: No - GI History Hx Gastrointestinal Disorders: No - Other Health History Other Health History: L partial knee infection - Chronic Pain History Chronic Pain: Yes (hand arthritis) - Surgical History Prior Surgeries: partial Left knee ~2010. L knee debridement/I and D, removal of implant, spacer implant w/antibx 04-21-17;. T&A child ANE Review of Systems Review of Systems: - Exercise capacity METS (RN): 3 METS ANE Patient History - Allergies Allergies/Adverse Reactions: No Allergies [NKDA] Allergy (Verified 06/29/17 12:13) - Home Medications Home Medications: Multivitamins [Multivitamin (*)] 1 each PO DAILY 04/21/17 [Last Taken 08/08/17] Diazepam [Valium 10 MG (*)] 10 mg PO HS PRN 06/29/17 [Last Taken 08/14/17] HYDROcodone/APAP 10/325 [[place] 10/325 (*)] 1 tab PO Q4-6PRN PRN 06/29/17 [Last Taken 08/15/17 04:30 1 and 1/2 tab] Herbals/Supplements -Info Only 1 ea PO DAILY 06/29/17 [Last Taken 08/08/17] Ibuprofen [Motrin (*)] 800 mg PO BID 06/29/17 [Last Taken 08/08/17] oxyCODONE HCL [Oxycontin] 20 mg PO BID 08/09/17 [Last Taken Unknown] - Anes Hx Anes Hx: no prior problems - Smoking Hx Smoking Status: Light smoker - Family Anes Hx Family Hx Anesthesia Complications: mother had increase dementia issues after anesthesia ANE Labs/Vital Signs - Vital Signs Height: 160.02 cm Weight: 61.235 kg ANE Physical Exam - Airway Neck exam: FROM Mallampati Score: Class 2 Mouth exam: normal dental/mouth exam - Pulmonary Pulmonary: no respiratory distress, no rales or rhonchi, clear to auscultation - Cardiovascular Cardiovascular: regular rate and rhythym, no murmur, rub, or gallop - ASA Status ASA Status: II ANE Anesthesia Plan Anesthesia Plan: spinal Regional Anesthesia: adductor canal FNB
[2017-08-15] MEDS ORDERED: DEXAMETHASONE 4 MG/ML VIAL ONE (12:31)
[2017-08-15] MEDS ORDERED: MIDAZOLAM 2 MG/2 ML VIAL ONE (12:51)
[2017-08-15] MEDS ORDERED: ceFAZolin 1 GM/5 ML SYR ONE (13:10)
[2017-08-15] MEDS ORDERED: diphenhydrAMINE 25 MG CAP PO PRN (13:13)
[2017-08-15] MEDS ORDERED: CYCLOBENZAPRINE 10 MG TAB PO PRN (13:13)
[2017-08-15] MEDS ORDERED: LACTULOSE 20 GM/30 ML UDCUP PO PRN (13:13)
[2017-08-15] MEDS ORDERED: ONDANSETRON DISINTEGRATING 4 MG TAB PO PRN (13:13)
[2017-08-15] MEDS ORDERED: BISACODYL 10 MG SUPP PR PRN (13:13)
[2017-08-15] MEDS ORDERED: ONDANSETRON 4 MG/2 ML VIAL IVP PRN ×2 (13:13→14:20)
[2017-08-15] MEDS ORDERED: DIPHENOXYLATE/ATROPINE LOMOTIL 1 TAB PO PRN (13:13)
[2017-08-15] MEDS ORDERED: TEMAZEPAM 15 MG CAP PO PRN (13:13)
[2017-08-15] MEDS ORDERED: METOCLOPRAMIDE 10 MG/2 ML VIAL IVP PRN (13:13)
[2017-08-15] MEDS ORDERED: POLYETHYLENE GLYCOL 3350 17 GM PKT PO PRN (13:13)
[2017-08-15] MEDS ORDERED: PROMETHAZINE HCL 25 MG/ML INJ IVP PRN ×2 (13:13→14:20)
[2017-08-15] MEDS ORDERED: PROMETHAZINE HCL 25 MG SUPPR PR PRN (13:13)
[2017-08-15] MEDS ORDERED: oxyCODONE IR 5 MG TAB PO PRN (13:13)
[2017-08-15] MEDS ORDERED: MAGNESIUM HYDROXIDE 30 ML UDCUP PO PRN (13:13)
[2017-08-15] MEDS ORDERED: traMADol 50 MG TAB PO PRN (13:13)
[2017-08-15] MEDS ORDERED: DIAZEPAM 5 MG TAB PO PRN (13:14)
[2017-08-15] MEDS ORDERED: LR 1,000 ML IV SCH (13:30)
[2017-08-15] MEDS ORDERED: LIDOCAINE 2% JELLY 5 ML TUBE ONE (13:33)
[2017-08-15] MEDS ORDERED: fentaNYL 250 MCG/5 ML INJ ONE (13:33)
[2017-08-15] MEDS ORDERED: LIDOCAINE 2% 5 ML SDV ONE (13:38)
[2017-08-15] MEDS ORDERED: ceFAZolin 2 GM/DEXTROSE 100 ML IV SCH (14:00)
[2017-08-15] MEDS ORDERED: HYDROmorphONE/DILAUDID 2 MG/ML INJ ONE ×2 (14:05→15:40)
[2017-08-15] MEDS: BUPIVACAINE/EPI 0.5% 30 ML SDV ONE ×2 (14:11→14:46)
[2017-08-15] MEDS ORDERED: MEPERIDINE 25 MG/0.5 ML AMP IVP PRN (14:20)
[2017-08-15] MEDS ORDERED: NALOXONE HCL 0.4 MG/ML INJ IVP PRN (14:20)
[2017-08-15] MEDS ORDERED: LR 500 ML IV PRN (14:20)
[2017-08-15] MEDS ORDERED: ACETAMINOPHEN 500 MG TAB PO PRN (14:20)
[2017-08-15] MEDS ORDERED: ONDANSETRON 4 MG/2 ML VIAL ONE (14:32)
[2017-08-15] MEDS: fentaNYL 100 MCG/2 ML INJ IVP PRN ×2 (15:20→15:28)
[2017-08-15] MEDS ORDERED: KETOROLAC 30 MG/1 ML SDV IVP ONE (15:23)
--- NOTE | 2017-08-15 15:24 | POSTANESTH ---
Post Anesthetic Evaluation Cardiovascular Status: Normal, Stable, Similar to Pre-Op Cond Respiratory Status: Normal, Stable, Similar to Pre-op Cond. Level of Consciousness/Mental Status: Can Participate in Eval, Alert and Oriented Pain Control: Adequate, Prn Tx Ordered Nausea/Vomiting Control: Adequate, Prn Tx Ordered Complications Possibly Related to Anesthesia: None Noted
[2017-08-15] MEDS: HYDROmorphONE/DILAUDID 2 MG/ML INJ IVP PRN ×8 (15:42→17:43)
[2017-08-15] MEDS ORDERED: KETOROLAC 30 MG/1 ML SDV ONE (15:55)
[2017-08-15] MEDS ORDERED: oxyCODONE IR 5 MG TAB ONE ×2 (16:08→16:55)
[2017-08-15] MEDS: oxyCODONE IR 5 MG TAB PO PRN ×2 (16:09→16:56)
--- NOTE | 2017-08-15 16:30 | PDMN ---
Medical Necessity Medical necessity: IP surgery per [facility] cpt 88280 Revision L TKA
[2017-08-15] MEDS ORDERED: DIAZEPAM 5 MG TAB PO ONE (16:52)
[2017-08-15] MEDS ORDERED: DIAZEPAM 5 MG TAB ONE (16:59)
[2017-08-15] MEDS: TRANEXAMIC ACID 650 MG TAB PO SCH ×2 (18:27→21:08)
[2017-08-15] MEDS: ACETAMINOPHEN 325 MG TAB PO SCH (18:37)
[2017-08-15] MEDS: HYDROCODONE/APAP 10/325 TAB PO PRN (19:34)
[2017-08-15] MEDS: SENNOSIDES/DOCUSATE SODIUM TAB PO SCH (21:08)
[2017-08-15] MEDS: FAMOTIDINE 20 MG TAB PO SCH (21:08)
[2017-08-15] MEDS: ceFAZolin 2 GM/SWFI 2 GM/20 ML SYR IVP SCH (21:09)
[2017-08-15] MEDS: ASPIRIN 325 MG TAB PO SCH (21:19)
[2017-08-16] MEDS: ACETAMINOPHEN 325 MG TAB PO SCH ×3 (00:06→12:44)
[2017-08-16] MEDS: HYDROCODONE/APAP 10/325 TAB PO PRN ×3 (00:25→13:22)
[2017-08-16] MEDS: ceFAZolin 2 GM/SWFI 2 GM/20 ML SYR IVP SCH (04:48)
[2017-08-16] MEDS: TRANEXAMIC ACID 650 MG TAB PO SCH (04:48)
--- NOTE | 2017-08-16 06:49 | PDIAF ---
- Diagnosis Diagnosis: failed left total knee arthroplasty Code Status: Full Code - Medication Management Discharge Medications: Medications to Continue on Transfer Multivitamins [Multivitamin (*)] 1 each PO DAILY 04/21/17 [Last Taken 08/08/17] Diazepam [Valium 10 MG (*)] 10 mg PO HS PRN 06/29/17 [Last Taken 08/14/17] HYDROcodone/APAP 10/325 [[place] 10/325 (*)] 1 tab PO Q4-6PRN PRN 06/29/17 [Last Taken 08/15/17 04:30 1 and 1/2 tab] Herbals/Supplements -Info Only 1 ea PO DAILY 06/29/17 [Last Taken 08/08/17] Ibuprofen [Motrin (*)] 800 mg PO BID 06/29/17 [Last Taken 08/08/17] Aspirin [Aspirin 325 mg (*)] 325 mg PO DAILY tab 07/19/17 [Last Taken 08/08/17] oxyCODONE HCL [Oxycontin] 20 mg PO BID 08/09/17 [Last Taken Unknown] Aspirin [Aspirin 325 mg (*)] 325 mg PO DAILY tab 08/16/17 [Last Taken Unknown] Discharge Medications: Refer to the Discharge Home Medication list for PRN reason. - Orders Services needed: Physical Therapy Isolation Type: None Diet Recommendation: no restrictions on diet Diet Texture: Regular Texture Diet Activity/Weight Bearing Restrictions: wbat. rom as edy. keep dressing. if dressing becomes saturated, change daily. may shower without bandage. f/u at two weeks. seek attn for increasing pain, chest pain, shortness of breath, drainage or other focal complaint Additional Instructions: TOTAL JOINT ARTHROPLASTY DISCHARGE INSTRUCTIONS 1. Your surgeon follows the [facility] protocol for reducing your risk of DVT (blood clots) following surgery. Medication will be ordered to prevent blood clots. A sudden increase in calf pain and/or swelling could indicate a blood clot in your leg. If this occurs, please call your surgeon or his/her phlebotomist medical lab assistant. An ultrasound of the leg may be necessary to diagnose a blood clot. If you have conditions that make you a higher risk for blood clots, your surgeon may use more aggressive ways to prevent them. Notify your surgeon if you think you are a high risk for blood clots. 2. Wear your white surgical stockings (COLE hose) for 2 weeks. This decreases your swelling and may help prevent blood clots. It is ok to remove COLE hose at night time to give your legs a break. 3. Swelling and bruising in the surgical leg is common. If you feel that it is excessive, please notify your surgeon. 4. Elevate your surgical leg with the ankle above the hip several times every day. Please keep the leg straight when you elevate by putting pillows under your foot. Do not put pillows under your knee. This will make being able to fully straighten more difficult. This is uncomfortable, but try to do it as much as possible. 5. For total knee replacements use compressive wrap on your knee for 3-5 days after surgery, then you can discontinue it. 6. Use a walker or crutches for 1-2 weeks. Progress your weight-bearing as tolerated. You may start to use a cane when you feel stable and safe. 7. You will receive physical therapy instructions in the hospital. Continue those exercises at home. There are additional exercises in the total joint booklet you were given before surgery. Outpatient physical therapy will begin 7- 10 days after surgery. Please schedule this in advance. 8. Use ice on your knee at least 3-5 times every day for 30 minutes. This helps reduce pain and swelling. Also use it at night before falling asleep. 9. Leave your surgical dressing in place for 2 weeks. Your dressing is water resistant, but not waterproof. Cover it with Saran Wrap or Jswxy-d-Mjsc before showering. You may shower as soon as you feel safe entering a shower. If you notice bleeding from your incision 2 or 3 days after surgery, please notify your surgeon. 10. Due to narcotics, decreased activity and altered diet, most patients experience constipation after surgery. Use pnxe-fod-aclxflk stool softeners while you are on narcotics. 11. You may drive a car when you are comfortable bearing weight, have good muscular control of your leg and are off narcotics. This usually occurs 2-4 weeks after surgery, depending on which leg was operated on. 12. If there are questions not addressed here, please refer the [facility] book given for more information. If you still have questions, please contact your surgeon s office. 13. If you have a life-threatening emergency, please call 911 and go to the emergency room immediately. For non-life threatening emergencies, please call your physicians office for advice before going to the emergency room. wbat rom as edy keep dressing if dressing becomes saturated, change daily may shower without bandage f/u at two weeks seek attn for increasing pain, chest pain, shortness of breath, drainage or other focal complaint - Follow Up Care Current Providers and Referrals: Neftaly Mccormick MD [Medical Doctor] - Judit Bynum MD [Primary Care Provider] -
--- NOTE | 2017-08-16 07:03 | GDS ---
[f rep st] DISCHARGE SUMMARY ADMIT DIAGNOSIS: Left knee degenerative joint disease. Failed total knee arthroplasty. POSTOP DIAGNOSIS: Left knee degenerative joint disease. Failed total knee arthroplasty. PROCEDURES: Revision arthroplasty, left total knee. OPERATIVE INDICATIONS: The patient is a 67-year-old woman with a history of infected left knee repla cement. She has undergone 2 previous debridements and cement spacer placement. [facility]. HOSPITAL COURSE: The patient was admitted to the hospital floor after uncomplicated revision arthrop lasty, left knee. She tolerated the procedure well. At the time of discharge, she is tolerating an oral diet. Pain is well controlled on oral medicines. She is voiding without difficulty. Dressing is clean, dry, and intact. She has negative Yaz's bilaterally. X-rays are stable with anatomic al ignment. There is no fracture or lucency. DISCHARGE MEDICATIONS: See chart. She has chronic pain and will follow up with Dr. Goncalves for her p ain management, and aspirin 325 mg p.o. daily for 6 weeks. FOLLOWUP: In 2 weeks. Of note, her PICC line will be discontinued upon discharge. /[id number]/MODL
[2017-08-16 07:50] VITALS: BP 117/62
[2017-08-16] MEDS: ASPIRIN 325 MG TAB PO SCH (08:52)
[2017-08-16] MEDS: SENNOSIDES/DOCUSATE SODIUM TAB PO SCH (08:53)
[2017-08-16] MEDS: FAMOTIDINE 20 MG TAB PO SCH (08:53)
[2017-08-16] MEDS ORDERED: MULTIVITAMINS 1 EACH TAB PO SCH (09:00)
--- NOTE | 2017-08-16 12:14 | ASMTCMCOM ---
CM Note CM Note Notes: Pt s/p revision arthroplasty, L total knee. Pt medically stable for d/c with [facility]. Orders to be obtained via [employer] Pt address/phone verified. Date Signed: 08/16/2017 12:14 PM Electronically Signed By:MARYANN Brooks
--- NOTE | 2017-08-16 15:44 | ASDISCHSUM ---
Discharge Information Plan Status:Home with Home Health Medically Cleared to Leave: Discharge Date:08/16/2017 02:26 PM CM D/C Disposition:Home Health Service ADT D/C Disposition:Home Health Service Projected Discharge Date:08/16/2017 11:00 AM Transportation at D/C: Discharge Delay Reason: Follow-Up Date:08/16/2017 11:00 AM Discharge Slot: Final Diagnosis: Placement Information Referral Type:*Home Health Care Services Referral ID:[id number] Provider Name:[facility] Address 1[address] [place] [address] Address 2: City:[place] Selection Factors: State:[place] Patient Contact Information Contact Name:JORGE L Relationship:Daughter Address: City: [facility] Phone: [facility] Code: Email: Financial Information Financial Class:Medicare Primary Plan Desc:MEDICARE INPATIENT Primary Plan Number:[id number] Secondary Plan Desc:[employer]AL [employer]AN Secondary Plan Number:[id number] Assessment Information BC CM Progress Note CM Note CM Note Notes: Pt s/p revision arthroplasty, L total knee. Pt medically stable for d/c with [facility] PT. Orders to be obtained via [employer]. Pt address/phone verified. Date Signed: 08/16/2017 12:14 PM Electronically Signed By:MARYANN Brooks Intervention Information
--- NOTE | 2017-08-17 07:35 | GOP ---
[f rep st] OPERATIVE REPORT DATE OF OPERATION: 08/15/2017 SURGEON: Neftaly Mccormick MD HOSPICE SUPERINTENDENT: Paul Benites, SENIOR WEALTH ADVISOR, DERMATOLOGICAL SURGEON, ophthalmic surgical assistant, who was medical necessity for the entirety of the case. PREOPERATIVE DIAGNOSIS: Failed left total knee arthroplasty. POSTOPERATIVE DIAGNOSIS: Failed left total knee arthroplasty. PROCEDURE PERFORMED: Revision arthroplasty, left total knee, of both components. FINDINGS: SPECIMENS: None. ESTIMATED BLOOD LOSS: 100 cc. INDICATIONS: The patient is a 67-year-old woman who initially had a partial knee replacement with a deuce component; this was successful for approximately 4 years. However, she developed an acute sept ic joint following a dental abscess and had the components withdrawn and cement spacer placed. She u nderwent an attempt at a staged implantation 8 weeks subsequent to this, after clinically clearing he r infection. Intraoperative cultures revealed additional acute inflammation and an additional spacer was placed. Ultimately she had PCR amplification, which demonstrated no bacterial findings within t he knee. Decision has been made to proceed with reimplantation of her femoral and tibial components. She understood the risks, benefits, alternatives, and wished to proceed. Written consent was rachel d and placed in the patient's chart. DESCRIPTION OF PROCEDURE: The patient was identified in the preanesthesia area. The left knee clear ly demarcated as operative site with an indelible marker. She was given 2 g of Ancef intravenously e n route to the operative suite. In the OR, a spinal anesthetic was placed, followed by sedation. Sh e was positioned in supine position. All bony prominences were well padded. Attention was turned to the left knee and lower extremity, which was sterilely prepped and draped in usual fashion. A tourniquet was applied to the upper thigh. The limb was then exsanguinated and neal rniquet inflated to 275 mmHg. The previous incision was opened in entirety, carried sharply through the skin and subcutaneous tissue to the medial parapatellar arthrotomy. A medial parapatellar arthro terrie was placed through the previous area. All suture remnants were withdrawn. Soft tissue releases were carried out to the mid coronal plane and retractors were then placed. The knee was brought to a flexed position. The remnants of the cement components for the tibia and femur were removed withou t difficulty. The bone ends were intact from the previous cuts and the skin and subcutaneous tissue, bone ends were debrided in a serial fashion and copiously irrigated with pulsatile lavage solution. No additional cultures were sent given the previous PCR implication. Attention was 1st turned to the femur. An intramedullary guide dinora was then placed. A trial assembl y with a size 2-1/2 femoral component was then placed across the distal femur. Ultimately, 8 mm dist al augments were placed on both the medial and lateral sides, and this allowed appropriate fit with s light separation over the anterior cortex. The femoral component was withdrawn. The tibia was deliv ered anteriorly. Intramedullary reaming was carried out and ultimately a size 2 tibial plate was mary ellen ected. There was slight medial lateral offset and a 5 mm medial wedge was placed after simple bone c ut to accommodate this. This allowed neutral alignment and full seating of the tibial tray with a st em. The trial components were withdrawn and the final components assembled on the back table. The t ibial and femoral components were then cemented into position. A 32 mm all poly patella was then varghese ented into position across the knee and a 2-1/2 x 10 mm polyethylene spacer was ultimately selected. This allowed full extension and flexion of the knee without instability through the flexion-extensio n arc and neutral limb alignment. The wound was copiously irrigated. The medial parapatellar arthrotomy closed using #1 Ethibond sutur e. The capsule and deep tissues had been instilled with a joint cocktail of ropivacaine, morphine, T oradol, and epinephrine. The knee was instilled with the platelet-rich plasma solution, subcutaneous tissue closed using 2-0 Monocryl, and the skin was stapled. The limb was then sterilely prepped and the bandaged in the usual fashion with an Pete wrap and Cryo/Cuff. The patient was awakened, taken t o recovery room in good stable condition. TOTAL TOURNIQUET TIME: 1 hour and 5 minutes. COMPLICATIONS: None. IMPLANTS: A DePuy Revision knee size 2 tibia 5 mm medial wedge with a 75 x 12 mm stem, a size 2-1/2 TC3 femur 5 degree adapter bolt -2 bolt, 8 mm distal augment on the medial and lateral side, and a 75 x 14 mm stem, and a 2-1/2 x 10 mm TC3 polyethylene insert, and a 32 mm all poly patella. DISPOSITION: To the recovery room, then the floor. She is weightbearing, range of motion as tolerat ed /[id number]/MODL
== END 2017-08-16 14:26 | disposition home health service (06) | DRG 470 ==
LOC: F3N 08:44
PROVIDERS: ADMIT Orthopaedic Surgery; ATTEND Orthopaedic Surgery
PROC: 0SRD0J9 Replacement of Left Knee Joint with Synthetic Substitute, Cemented, Open Approach (ICD-10-PCS; principal; 2017-08-15 09:30)
DX: T84.093A Other mechanical complication of internal left knee prosthesis, initial encounter (principal); G89.29 Other chronic pain
CPT/HCPCS: 97110-GP; 97116-GP; 97161-GP; 97165-GO; 97535-GO; C1713; G8978-GP-CI; G8979-GP-CI; G8980-GP-CI; G8987-GO-CI; G8988-GO-CI; G8989-GO-CI; J0171; J0690; J1100; J1170; J1885; J2250; J2270; J2405; J2704; J2795; J3010

== ENCOUNTER → 2017-11-30 | Outpatient (CLI) | payer OTHER, BC | LOC: BMCIMAGING 13:23 | PROVIDERS: ATTEND Orthopaedic Surgery | DX: Z96.652 Presence of left artificial knee joint (principal) ==

== ENCOUNTER → 2017-12-02 | Outpatient (CLI) | payer OTHER, BC | LOC: FIMAGING 14:42 | PROVIDERS: ATTEND Obstetrics & Gynecology | DX: Z12.31 Encounter for screening mammogram for malignant neoplasm of breast (principal) ==

== ENCOUNTER → 2018-03-15 | Outpatient (CLI) | payer OTHER, BC | LOC: BMCIMAGING 13:01 | PROVIDERS: ATTEND Orthopaedic Surgery | DX: Z47.1 Aftercare following joint replacement surgery (principal); Z96.652 Presence of left artificial knee joint ==

== ENCOUNTER → 2018-10-02 | Outpatient (CLI) | payer OTHER, BC | LOC: SUPIMAGING 15:17 ==